=== PATIENT | female | born 1985 | race Caucasian/White ===

== ENCOUNTER 2023-08-31 09:31 | Inpatient (IN) | payer MEDICAID, SELFPAY ==
[2023-08-31 09:43] VITALS: BP 109/56; PULSE 87; RESP 16; TEMP 36.4; O2SAT 100
--- NOTE | 2023-08-31 10:15 | DI.RAD_ITS ---
Exam(s) XR ANKLE RT COMPLETE XR FOOT RT COMPLETE EXAM: XR FOOT RT COMPLETE and XR ankle RT complete CLINICAL HISTORY: IVDU, ?osteo. TECHNIQUE: 2D digital imaging was performed of the right ankle and foot. Six images were obtained. AP, oblique and lateral views were obtained. COMPARISON: No priors for comparison. FINDINGS: BONES: No acute fracture is present. No bony destructive lesion is seen. JOINTS: No dislocation present. The joint spaces are well maintained. SOFT TISSUE: Normal. No subcutaneous air or foreign body is identified. IMPRESSION: Unremarkable radiographs of the right ankle and foot. No radiographic findings to suggest osteomyeli tis. DATA REPOSITORY: RADIATION DOSE DELIVERED:
--- NOTE | 2023-08-31 10:25 | ED.GENADUL_ITS ---
HPI General Date/Time Provider Initiated Documentation: 08/31/23 09:46 . HPI Narrative: 38 year-old female presents to ED today by POV/ambulating with a chief complaint of R foot/ankle pain, feels she may have a bone infection, history of IVDU with onset noted yesterday, started as back pain paraspinal to lumbar region, but that may have been just from sleeping wrong. Quality described as exquisite pain with light touch to foot/ankle of R leg, has a healing abscess to R mid-calf, no radiation to fever, numbness/tingling, groin numbness, leg weakness, inability to ambulate. Severity is described as 6-7/10. Palliating factors include nothing specific. Provoking factors include nothing specific. Events leading up to the incident/Associated Symptoms: Patient is still actively using IVDU, states she has been having trouble getting started with [facility]. Patient not anticoagulated. Related Data Home Medications Medication Instructions Recorded Confirmed buprenorphine HCl 8 mg sublingual 8 mg sublingual BID 08/31/23 08/31/23 tablet Allergies Allergy/AdvReac Type Severity Reaction Status Date / Time No Known Allergies Allergy Verified 08/31/23 13:47 General Stated Complaint: Cellulitis ALDEN: 3 Review of Systems All systems reviewed & are unremarkable except as noted in HPI and below Exam Narrative Exam Narrative: GENERAL APPEARANCE: Well-nourished, non-toxic, awake and alert, atraumatic, no acute distress. SKIN: Warm, pink, dry, intact, without rashes/lesions/ulcerations. HEAD: Normocephalic, atraumatic, normal hair distribution for gender/age. EYES: Pupils PERRLA, EOMs intact without nystagmus, normal conjunctiva, no exudates on lids/lashes. ENT: Nares patent, no circumoral cyanosis, no facial swelling NECK: Supple, trachea midline, painless cervical ROM. LUNGS/CHEST: Non-labored respirations, normal A/P diameter, symmetrical expansion, no chest wall deformity HEART (CV/PV): Regular rate, R dorsalis pedis pulse 2+, no peripheral edema, no JVD. ABDOMEN: Soft, non-distended, no guarding. MSK: Normal ROM, no swelling/deformity to bilateral UEs or LEs, moving all extremities without weakness, no cyanosis, spine midline without tenderness, normal curvature. R LE: Well-healed ulceration at the right mid calf with no signs of active fluctuance under the skin, multiple old sites of IVDU with exquisite tenderness to the foot and ankle over bony prominences, sensation intact, no overt redness or warmth to touch NEURO: Mental Status AAOx4 - alert to person, place, time, events No facial droop, no forehead involvement. Motor: No focal weakness - strength 5/5 in bilateral UEs and LEs, proximal and distal, symmetric. Sensory: sensation intact to light touch globally. Gait normal: patient ambulated without ataxia into ED room. PSYCH: euthymic, cooperative, pleasant, appropriate speech Course Vital Signs Vital signs: Vital Signs Temperature 36.4 C L 08/31/23 09:43 Pulse 87 08/31/23 09:43 Respiratory Rate 16 08/31/23 09:43 Blood Pressure 109/56 L 08/31/23 09:43 Pulse Oximetry 100 08/31/23 09:43 Temperature 36.4 C L 08/31/23 09:43 Temperature Source Temporal Artery Scan 08/31/23 09:43 Pulse 87 08/31/23 09:43 Respiratory Rate 16 08/31/23 09:43 Blood Pressure 109/56 L 08/31/23 09:43 Blood Pressure Position Sitting 08/31/23 09:43 Pulse Oximetry 100 08/31/23 09:43 Oxygen Delivery Method Room Air 08/31/23 09:43 Oxygen Flow Rate 0 08/31/23 09:43 Medical Decision Making This dictation utilizes [id number] dictation software and may contain unedited grammatical errors. 38 y/o F presents to ED today with a chief complaint of R foot/leg pain, history of IVDU, has a healing ulceration to R mid-calf from IVDU, feels she may have a bone infection. Patient denies overt fevers, endorses significant pain with any weight-bearing, states she has back pain as well but it is paraspinal and likely due to how she slept on it. Patients' medical history: Polysubstance abuse. Family and social history: History of IV drug use. Pertinent exam findings / vital signs include R LE: Well-healed ulceration at the right mid calf with no signs of active fluctuance under the skin, multiple old sites of IVDU with exquisite tenderness to the foot and ankle over bony prominences, sensation intact, no overt redness or warmth to touch, pain with passive ROM. Differential / pathologies of concern include osteomyelitis, cellulitis. Diagnostic studies of: -CBC, CMP, CRP/ESR, Lactate, XR R Foot & Ankle, MR Lower Ext w/wo. -CRP/ESR elevated -CBC no leukocytosis -Lactate wnl -XR shows no signs of osteomyelitis Interventions of: -none, await ortho consult. -Patients IV blew and MRI contrast study was not accomplished ED Course/Assessment/Plan: 38-year-old female who is an active IV drug user is complaining of right ankle pain without overlying cellulitis, there is no overt pain with passive range of motion there is pain with light touch, I did perform x-rays which show no acute abnormalities, she does have elevated inflammatory markers with concern for possible osteomyelitis I did perform MRI which was signed out to oncoming providers Ailyn Noel PA-C with MRI read pending and possible Ortho consult. Disposition of Right Ankle Pain. Patient verbalized understanding of the plan and return to ED criteria and engaged in shared decision making. Medical Records Medical records reviewed: Yes I reviewed the patient's medical records. Imaging Data Radiologic Study: Attestation: I personally reviewed and interpreted this imaging study as follows: Imaging: X-Ray Radiologist's impression: EXAM: XR FOOT RT COMPLETE and XR ankle RT complete CLINICAL HISTORY: IVDU, ?osteo. TECHNIQUE: 2D digital imaging was performed of the right ankle and foot. Six images were obtained. AP, oblique and lateral views were obtained. COMPARISON: No priors for comparison. FINDINGS: BONES: No acute fracture is present. No bony destructive lesion is seen. JOINTS: No dislocation present. The joint spaces are well maintained. SOFT TISSUE: Normal. No subcutaneous air or foreign body is identified. IMPRESSION: Unremarkable radiographs of the right ankle and foot. No radiographic findings to suggest osteomyelitis. Radiologic Study #2: Imaging: MRI Lab Data Lab results reviewed: Yes I reviewed the patient's lab results. Labs: Laboratory Tests Range/Units 08/31/23 12:08 WBC (4.4-10.8) 10^3/uL 8.83 RBC (3.93-5.22) 10^6/uL 3.19 L Hgb (11.2-15.7) g/dL 9.7 L Hct (36.0-46.0) % 29.6 L MCV (80-95) fL 93 MCH (27.0-33.0) pg 30.4 MCHC (32.0-36.0) % 32.8 RDW (11.7-14.6) % 12.8 Plt Count (130-400) 10^3/uL 249 MPV (8.0-11.0) fL 10.3 Immature Gran % 0.5 Neutrophils % 72.8 Lymphocytes % 15.2 Monocytes % 11.1 Eosinophils % 0.1 Basophils % 0.3 Nucleated RBC % (0.0-0.3) % 0.0 Absolute Neutrophils (1.2-6.7) 10^3/uL 6.43 Absolute Lymphocytes (1.2-3.4) 10^3/uL 1.34 Absolute Monocytes (0.1-0.8) 10^3/uL 0.98 H Absolute Eosinophils (0.0-0.7) 10^3/uL 0.01 Absolute Basophils (0.0-0.2) 10^3/uL 0.03 ESR (0-20) mm/hr 45 H VBG Lactate (0.6-1.4) mmol/L 1.1 Sodium (136-145) mmol/L 136 Potassium (3.5-5.1) mmol/L 4.1 Chloride (98-107) mmol/L 100 Carbon Dioxide (21.0-32.0) mmol/L 27.7 Anion Gap (3-11) mmol/L 8.3 BUN (7-18) mg/dL 8 Creatinine (0.55-1.02) mg/dL 1.0 Est GFR (CKD-EPI 2020) (mL/min/1.73m2) 73.95 Glucose (74-106) mg/dL 97 Calcium (8.5-10.1) mg/dL 8.9 Total Bilirubin (0.2-1.0) mg/dL 0.3 AST (15-37) U/L 18 ALT (14-59) U/L 14 Alkaline Phosphatase (46-116) U/L 79 C-Reactive Protein (0.0-0.3) mg/dL 9.84 H Total Protein (6.4-8.2) g/dL 8.0 Albumin (3.4-5.0) g/dL 2.9 L Quality:SDOH Health Related Social Needs: No Data to Display PFSH All Active Problems (Updated 08/31/23 @ 15:57 by MELINDA Andrade) Right ankle pain (Acute) Social History Smoking risk assessment performed?: No Substance use type: crack/cocaine and other Details: Fentanyl Do you feel safe at home: Yes Do you feel safe in your relationship?: Yes Discharge Plan Disposition Patient Disposition: Home Condition: Stable Discharge Details Clinical Impression: Right ankle pain Primary Care Provider: None,None ED Provider: Michel Miller Home Meds and New Rx's Prescriptions: No Action buprenorphine HCl 8 mg tablet, sublingual 8 mg SUBLINGUAL BID Patient Comments: place 1 tablet by sublingual route 2 times every day allow to dissolve slowly in mouth without chewing or swallowing
[2023-08-31 12:12] VITALS: BP 109/56; PULSE 87; RESP 16; TEMP 36.4; O2SAT 100
[2023-08-31 12:16] LABS: Lactate 1.1 mmol/L (0.6-1.4)
[2023-08-31 12:24] LABS: Abs Immature Grans 0.04 10^3/uL (0.0-0.06); Absolute Basophil Count 0.03 10^3/uL (0.0-0.2); Absolute Eosinophil Count 0.01 10^3/uL (0.0-0.7); Absolute Lymphocyte Count 1.34 10^3/uL (1.2-3.4); Absolute Monocyte Count 0.98 10^3/uL (0.1-0.8); Absolute Neutrophil Count 6.43 10^3/uL (1.2-6.7); Basophils % 0.3; Eosinophils % 0.1; HCT 29.6 % (36.0-46.0); HGB 9.7 g/dL (11.2-15.7); Immature Grans % 0.5; Lymphocytes % 15.2; MCH 30.4 pg (27.0-33.0); MCHC 32.8 % (32.0-36.0); MCV 93 fL (80-95); MPV 10.3 fL (8.0-11.0); Monocytes % 11.1; Neutrophils % 72.8; Platelet Count 249 10^3/uL (130-400); RBC 3.19 10^6/uL (3.93-5.22); RDW 12.8 % (11.7-14.6); RDW-SD 43.1 fL; WBC 8.83 10^3/uL (4.4-10.8)
[2023-08-31 12:34] LABS: ALT 14 U/L (14-59); AST 18 U/L (15-37); Albumin 2.9 g/dL (3.4-5.0); Alkaline Phosphatase 79 U/L (46-116); Anion Gap 8.3 mmol/L (3-11); BUN 8 mg/dL (7-18); Bilirubin, Total 0.3 mg/dL (0.2-1.0); C-Reactive Protein 9.84 mg/dL (0.0-0.3); CO2 27.7 mmol/L (21.0-32.0); Calcium 8.9 mg/dL (8.5-10.1); Chloride 100 mmol/L (98-107); Estimated GFR 73.95 (mL/min/1.73m2); Glucose 97 mg/dL (74-106); Potassium 4.1 mmol/L (3.5-5.1); Sodium 136 mmol/L (136-145)
[2023-08-31] MEDS: Ketorolac 10 MG TAB PO (12:49)
[2023-08-31] MEDS: Acetaminophen 500 MG TAB 1000 MG PO ×2 (12:49→21:50)
--- NOTE | 2023-08-31 12:56 | DI.MRI_ITS ---
Exam(s) MR LOWER JOINT RT WO/W EXAM: MR LOWER JOINT RT WO/W CLINICAL HISTORY: R foot/ankle; ?osteomyelitis TECHNIQUE: Multiplanar multisequence MRI was performed with both pre and post contrast infused seque nces. IV contrast = Dotarem 12 mL IV COMPARISON: CR XR ANKLE RT COMPLETE from 08/31/2023 FINDINGS: SKIN: No evidence of ulcer nor subcutaneous tract. BONES/JOINTS: No evidence of fracture nor bone contusion. No osseous erosions. There is a moderate size ankle tibiotalar joint effusion. Mild synovial thickening. There is no effusion of the subtala r joint. The talar dome appears unremarkable. There is no evidence of para-articular ganglion.The re is no evidence of osseous tarsal coalition. LIGAMENTS: The anterior and posterior tibiofibular and calcaneofibular ligaments are intact. The ante rior and posterior talofibular ligaments are intact. The deltoid ligament is intact. SINUS TARSI: There is no loss of the normal fat signal in this space. Interosseous ligament is intac t. There is no evidence of sinus tarsi ganglion cyst. ANTEROLATERAL GUTTER:There is no abnormal signal/abnormal tissue in this space. MUSCULOTENDINOUS STRUCTURES: Achilles tendon: Unremarkable. No evidence of tear nor tendinitis/tendinosis. Plantar fascia: Unremarkable. No evidence of tear, abnormal thickening, nor abnormal nodularity. Anterior Extensor tendons: Unremarkable. Medial Tendons: Posterior Tibialis: Unremarkable. No tear or tenosynovitis evident. Flexor Digitorum longus: Unremarkable. No tear or tenosynovitis evident. Flexor Hallicus longus: Unremarkable. No tear or tenosynovitis evident. Lateral Tendons: Peroneus longus: Unremarkable. No tear nor tenosynovitis evident. Peroneus brevis:Unremarkable. No tear nor tenosynovitis evident. SOFT TISSUES: No abnormal intramuscular signal. OTHER FINDINGS: None. IMPRESSION: 1. Main finding here is a moderate-sized tibiotalar joint effusion. Given the clinical history here 1 might consider fluid sampling to rule out infection/septic arthritis. 2. No evidence of osteomyelitis. 3. No tendon tears nor tenosynovitis. DATA REPOSITORY:
[2023-08-31 12:57] LABS: ESR 45 mm/hr (0-20)
[2023-08-31] MEDS: Normal Saline Flush 10 ML SYR IVP ×2 (15:15→21:51)
[2023-08-31] MEDS: Gadoterate meglumine 20 ML SYRINGE 12 ML IVP (15:16)
[2023-08-31] MEDS: fentaNYL 100 MCG/2 ML VIAL IVP (17:41)
[2023-08-31 17:45] LABS: Lactate 0.9 mmol/L (0.6-1.4)
[2023-08-31 17:51] LABS: Clarity Cloudy; Mononuclear Cells 5 %; Polynuclear Cells 95 %
--- NOTE | 2023-08-31 17:53 | DI.VRAD_ITS ---
PROCEDURE INFORMATION: Exam: MR Right Lower Extremity Joint Without and With Contrast; Ankle Exam date and time: 08/31/2023 2:59 PM Age: 38 years old Clinical indication: Pain; Right; Patient HX: R foot/ankle; ? Osteomyelitis TECHNIQUE: Imaging protocol: Magnetic resonance imaging of the right lower extremity without and with contrast. Exam focused on the ankle. Contrast material: DOTAREM; Contrast volume: 12 ml; Contrast route: INTRAVENOUS (IV); COMPARISON: No relevant prior studies available. FINDINGS: Bones/joints: The bones are intact. Bone marrow signal is not pathologically infiltrated. Ankle joint effusion is present and associated with diffuse symmetric synovial thickening and enhancement. There is no significant inflammatory change in the adjacent soft tissues. LIGAMENTS: Distal tibiofibular syndesmosis: Unremarkable. No tear. Anterior talofibular ligament: Unremarkable. No tear. Posterior talofibular ligament: Unremarkable. No tear. Calcaneofibular ligament: Unremarkable. No tear. Deltoid ligament complex: Unremarkable. No tear. TENDONS: Flexor tendons of foot: Unremarkable as visualized. Tibialis posterior tendon: Unremarkable as visualized. Peroneal tendons: Unremarkable as visualized. Extensor tendons of foot: Unremarkable as visualized. Tibialis anterior tendon: Unremarkable as visualized. Achilles tendon: Unremarkable as visualized. Tarsal canal (Sinus tarsi): Unremarkable. Normal signal of the fat. Tarsal tunnel: Unremarkable. Soft tissues: Unremarkable. Plantar fascia: Plantar fascia is unremarkable. IMPRESSION: 1. Normal bones. Negative for evidence of osteomyelitis. 2. Ankle joint effusion and nonspecific acute synovitis. Consider fluid sampling if there is a desire to evaluate for a specific pathology. Dictated and Authenticated by: Rashad Bowens MD. Ordering:YOAV Pearson MD
[2023-08-31 18:27] VITALS: BP 108/78; PULSE 85; RESP 18; TEMP 36.7; O2SAT 100
[2023-08-31] MEDS: VANCOMYCIN 1,500 MG in Normal Saline 250 ML 166.6666 MG IVPB (18:39)
--- NOTE | 2023-08-31 18:56 | W.ORTHOCONSU ---
Date of service: 08/31/23 Time of Service: 16:25 History of Present Illness History of Present Illness Chief Complaint: Right Ankle Pain Narrative: Melissa is a 38-year-old female who presents today with exquisite right ankle and foot pain. She reports has been present for the last day. She had difficulty ambulating today which made her present to the emergency department. She is an active IV drug user, using fentanyl regularly. She has a wound to the medial aspect of the right calf which she reports is actually doing much better. She has not sought any professional treatment. She does state that she is trying to get started into the [facility] and does report taking Suboxone but still does continue to use fentanyl daily. She has a history of injecting within her leg and foot and over the medial aspect of the ankle. She otherwise reports some chills but no fevers. She has had no redness or other wounds except for that mentioned about the medial aspect of the right calf. No other significant medical history. She denies current chest pain or shortness of breath. She feels the pain is diffusely about the lower leg, ankle and foot. She does feel that it is swollen. She has been unable to bear weight. She has pain with any motion of the right ankle. Consults Consult date: 08/31/23 Requesting physician: Ailyn Noel Consult Reason Right ankle pain with effusion Assessment and Plan Assessment and plan (1) Ulcer of right lower extremity with fat layer exposed: Status: Acute (2) IVDU (intravenous drug user): Status: Acute (3) Right ankle pain: Status: Acute Assessment and plan: MRI and clinical examination is concerning for septic arthritis about the right ankle. Less likely to be Lyme and gout. Cell count is nearly 50,000 cells with a preponderance of polymorphonuclear cells which once again would be concerning for infection, particular given the history. She has an elevated CRP. No other significant findings externally except for multiple sites of injections excoriations, and a healing full-thickness ulceration about the medial?proximal calf. This test the presumed to be a septic arthritis about the right ankle. We will go ahead and start antibiotics. Draw blood cultures. Admitted to hospital for IV antibiotics. I appreciate medicine consult to help with her ongoing subs abuse disorder and making sure we appropriately treat her ongoing symptoms and the potential for detoxification. She seeks no other medical care routinely and therefore thing is important that the medicine team weighs then on her overall health and makes recommendations for current management anticipation of the operating room tomorrow. N.p.o. after midnight. Will going start vancomycin and Zosyn for broad-spectrum coverage. Review of Systems All systems reviewed & are unremarkable except as noted in HPI and below PFSH All Active Problems (Updated 08/31/23 @ 21:45 by Paul Pacheco MD) Septic arthritis of right ankle (Acute) Ulcer of right lower extremity with fat layer exposed (Acute) IVDU (intravenous drug user) (Acute) Right ankle pain (Acute) Social History Smoking risk assessment performed?: No Substance use type: crack/cocaine and other Details: Fentanyl Housing: house Do you feel safe at home: Yes Do you feel safe in your relationship?: Yes Exam Const General: cooperative, uncomfortable, disheveled and ill appearing Extrem Other: Evaluation of the right lower extremity shows multiple scabs and areas of excoriation from previous injection site. There is an area approximately 1-1/2 cm in diameter about the medial?proximal leg overlying the medial aspect of the calf musculature that has complete skin loss with exposed fat. The tissue does not appear necrotic but also does not appear very healthy. There is no surrounding erythema. There is some induration but no expressible fluid. There is some generalized swelling seen in the distal leg but a notable effusion is palpable about the right ankle. There is pain with any attempted passive range of motion of the right ankle. She is resistant to demonstrate any active range of motion of the right ankle. She is able to demonstrate some active toe extension and flexion. Sensation is grossly intact to light touch about the deep and superficial peroneal nerve and tibial nerve. Weakly palpable DP pulse. Results Last Vital Signs Temp 36.7 C 08/31/23 18: Pulse 85 08/31/23 18:27 Resp 18 08/31/23 18:27 BP 108/78 08/31/23 18:27 Pulse Ox 100 08/31/23 18:27 Labs 08/31/23 12:08 08/31/23 12:08 Labs: Laboratory Results - last 24 hr 08/31/23 08/31/23 08/31/23 12:08 16:49 17:34 WBC 8.83 RBC 3.19 L Hgb 9.7 L Hct 29.6 L MCV 93 MCH 30.4 MCHC 32.8 RDW 12.8 Plt Count 249 MPV 10.3 Immature Gran % 0.5 Neutrophils % 72.8 Lymphocytes % 15.2 Monocytes % 11.1 Eosinophils % 0.1 Basophils % 0.3 Nucleated RBC % 0.0 Absolute Neutrophils 6.43 Absolute Lymphocytes 1.34 Absolute Monocytes 0.98 H Absolute Eosinophils 0.01 Absolute Basophils 0.03 ESR 45 H VBG Lactate 1.1 0.9 Sodium 136 Potassium 4.1 Chloride 100 Carbon Dioxide 27.7 Anion Gap 8.3 BUN 8 Creatinine 1.0 Est GFR (CKD-EPI 2020) 73.95 Glucose 97 Calcium 8.9 Total Bilirubin 0.3 AST 18 ALT 14 Alkaline Phosphatase 79 C-Reactive Protein 9.84 H Total Protein 8.0 Albumin 2.9 L Fluid Source R Ankle Fluid Color Yellow Fluid Clarity Cloudy Fluid WBC 20832 Fld Polynuclear WBCs % 95 Fluid Mononuclear Cell 5 Imaging Imaging Studies: X-ray of the right ankle does not show any signs of osteomyelitis. Soft tissue swelling is seen. No other suspicious lesions. MRI of the right ankle demonstrates a large effusion about the right ankle. There is some synovitis in the area. There is no sign of bone marrow edema or reactive bone changes. No signs of osteomyelitis. No tenosynovitis. Procedures Joint Aspiration/Injection Joint Asp./Inject. 1: Time out performed: Yes Side of body: right Joint aspirated: ankle Ultrasound guidance: No Skin prep: Chlorhexidine Local anesthesia used: other (ethyl chloride spray) Needle size used: 22G Fluid obtained: turbid Patient tolerated procedure: well Additional comments: Fluid sample was sent to the lab for cell count and culture.
[2023-08-31 19:29] LABS: Source Nasal/Nares
--- NOTE | 2023-08-31 19:37 | W.EDPROG ---
Date of service: 08/31/23 Time of Service: 19:40 Medical Decision Making Case is excepted from PATRICK pending MRI Patient was assessed, she is unable to move her ankle, and concern for septic arthritis, I consulted with Dr. Pacheco, Ortho and he performed ankle arthrocentesis, cloudy fluid was obtained, greater than 95 white blood cells, will treat with vancomycin for presumed septic arthritis, pending washout in the morning Patient agreeable to admission Dr. Pacheco to admit Quality:SDOH Health Related Social Needs: No Data to Display Sign Out Sign Out Data: Sign Out Comment: Await contrast study for MRI Foot/Ankle, Consult ortho osteomyelitis vs septic arthritis- no redness/warmth/swelling over R ankle but does have some mild pain with passive ROM. Elevated inflammatory markers Last updated by Michel Miller PA at 08/31/23 15:58 Discharge Plan Disposition Patient Disposition: Home Condition: Stable Discharge Details Clinical Impression: Right ankle pain Primary Care Provider: None,None ED Provider: Ailyn Noel Home Meds and New Rx's Prescriptions: No Action buprenorphine HCl 8 mg tablet, sublingual 8 mg SUBLINGUAL BID Patient Comments: place 1 tablet by sublingual route 2 times every day allow to dissolve slowly in mouth without chewing or swallowing
[2023-08-31 20:06] VITALS: BP 123/79; PULSE 77; RESP 16; TEMP 37; O2SAT 100
[2023-08-31 20:10] VITALS: BP 123/66; PULSE 80; RESP 18; O2SAT 97
[2023-08-31 20:10] LABS: COVID-19 PCR Negative (Negative)
[2023-08-31 21:39] LABS: Lab Add On Test DONE
[2023-08-31] MEDS: Ketorolac 15 MG/ML VIAL IVP (21:50)
[2023-08-31 22:13] LABS: Vitamin D 25 Total 23.9 ng/mL (30-100)
[2023-08-31 22:38] VITALS: BP 114/68; PULSE 79; RESP 18; TEMP 36.8; O2SAT 98
[2023-08-31] MEDS: PIPERACILLIN/TAZO 3.375 GM in Normal Saline 50 ML IVPB (22:51)
--- NOTE | 2023-08-31 23:05 | MCONE_ITS ---
Date of service: 08/31/23 Time of Service: 19:45 Assessment and Plan Assessment and plan (1) Septic arthritis of right ankle: Assessment and plan: Patient presents with septic arthritis of her right ankle supported by arthrocentesis and MRI findings. Orthopedic surgery consulted and will washout her ankle first thing in the morning. Pain control is challenging in this patient who is recently started on methadone. Will treat with oral morphine to try and even out response (consider long acting once we can assess her need), and watch closely for respiratory depression with a combination of methadone and morphine, especially as pain control generally requires higher doses to achieve efficacy in patients on methadone and with a history of recreational drug use. Hopefully her need will go down following surgery. Patient currently using IV fentanyl at high doses. Patient on IV vancomycin and Zosyn for broad-spectrum coverage until her ankle joint can be flushed the organism and sensitivities identified. Patient will also need assistance establishing PCP care and arranging close outpatient followup, as she doesn't have a PCP currently. (2) Ulcer of right lower extremity with fat layer exposed: Status: Acute Assessment and plan: Ulcer healing well with eschar formed on top. No clinical evidence for surrounding cellulitis, or underlying abscess. (3) IVDU (intravenous drug user): Assessment and plan: Patient recently started on methadone 30 mg this past Thursday (3 days ago) and is now up to 50 mg a day. Will give patient 15 mg p.o. every 8 scheduled. She also is receiving as needed oral morphine for pain control on top of this. (4) Right ankle pain: Status: Acute Assessment and plan: See entry for septic arthritis of the right ankle joint above. Qualifiers: Chronicity: acute Qualified Code(s): M25.571 - Pain in right ankle and joints of right foot (5) Anemia: Status: Chronic Assessment and plan: Normochromic, normocytic. Unclear etiology. Continue to monitor. Qualifiers: Anemia type: unspecified type Qualified Code(s): D64.9 - Anemia, unspecified History of Present Illness Narrative: 38-year-old white female injection drug user who injects her right lower extremity presents with chief complaint of right ankle pain. Patient complains of 1 day of right ankle pain that is exquisite, even to light touch, and limiting her ambulation. Her biggest concern is for a bone infection. Her pain started yesterday evening. She also reports back pain in her lumbar paraspinal region, which she attributes to sleeping on it wrong. She denies any radiation with her ankle pain. Patient reports pain with any active or passive movement of her right ankle to the point where she does not want to move it at all and does not want it moved. She reports injecting fentanyl into her legs bilaterally including her feet and over the medial aspect of her right ankle. Reports associated discoloration (purple/redness) and warmth and swelling in her right ankle. In addition, she has a healing and improving abscess on her right mid calf. She has not taken any medication to try and help her pain. Patient has been trying to get into the [facility] program and recently started on 30 mg of methadone 3 days ago to help transition from intravenous drug use 3 days ago, and has now increased to 50 mg, but states she is still actively using intravenous fentanyl even with being on the methadone because the methadone dose isn't high enough yet. Patient is not on anticoagulation. Pt reports assocaited fever (unmeasured) and chills. In our emergency room, out of concern for septic arthritis, orthopedics was consulted (Dr. Pacheco) who performed an ankle arthrocentesis. Fluid returned was cloudy and had greater than 95% white blood cells. Patient was started on vancomycin and Zosyn for presumed septic arthritis and will be taken for washout surgery in the morning. Eleavted ESR/CRP at 45/9.8 respectively. Normal WBC and lactate. XR negative for osteomyelitis findings (+ for soft tissue swelling). MRI negative for osteo (no bone marrow edema or reative bone changes) but positive for findings c/w septic arthritis (large effusion about the right ankle, synovitis), less likely Lyme or gout; no tenosynovitis. Cell count is nearly 50,000 cells with a preponderance of polymorphonuclear cells with >95% wbcs. Blood cultures drawn. Review of Systems Narrative: Review of Systems See also HPI above. Const: Positive for fever, chills. HENT: Positive for acute hearing changes- feels as though her hearing has been decreasing recently (for a while). Eyes: Negative for acute visual disturbance. Resp: Negative for shortness of breath. CV: Negative for chest pain. Abd: Negative for abdominal pain. GI: Negative for bowel changes. : Negative for changes in urination. MSK: Negative for focal weakness. Skin: Negative for rash. Neuro: Negative for numbness. Heme: Positive for right leg/ankle edema. PFSH All Active Problems (Updated 09/01/23 @ 05:43 by Jose Tinoco MD) Anemia (Chronic) Ulcer of right lower extremity with fat layer exposed (Acute) Right ankle pain (Acute) Medical History (Updated 09/01/23 @ 05:43 by Jose Tinoco MD) IVDU (intravenous drug user) Surgical History (Updated 09/01/23 @ 05:36 by Jose Tinoco MD) Cervical vertebral fusion Septic arthritis of right ankle Social History Smoking risk assessment performed?: No Substance use type: crack/cocaine and other Details: Fentanyl Housing: house Do you feel safe at home: Yes Do you feel safe in your relationship?: Yes Exam Narrative Exam Narrative: Constitutional: NAD. Head/Face: NCAT. Eyes: PERRL. Nl appearing eyes. ENT: Nl appearing external ears, nose, and oropharynx. No exudates. Uvula mid- line. Neck: Supple, non-tender to palpation. No obvious mass. Slightly dry mucous membranes. Chest: Chest wall non-tender to palpation. Resp: CTAB. Equal BS. No wheezes, rhonchi, crackles, rales. CV: RRR. No rubs, or gallops. Abd/GI: Soft, NTTP. No rebound, guarding, rigidity. No organomegaly or masses palpated. Back/: No spinal tenderness. No CVA tenderness. Skin: Warm & dry. No clinically significant rash noted on exposed skin, patient has multiple injection site wounds throughout her lower extremities bilaterally. She also has a quarter sized healing ulcer on her right mid posterior medial calf with eschar and exudate. MSK/Ext: APPIAH. 5/5 motor in all ext bilaterally (except unable to test right ankle d/t pain). Heme/Lymph: Right ankle edema. Neuro: A&O. Nl speech. Sensory & Motor grossly intact. Capacity intact. Decreased judgment. Psych: Appropriate mood, manner, and affect. SIRS Screen: Negative SIRS Criteria (at least 2 of the following): Temp (+ mode) (?101 (38.3), ?96.8 (36))- Negative Pulse (?90/min)- Negative (or) Resp (?20/min)- Negative (or) WBC (?12K, ?4K) or Bandemia (?10%)- Negative Source of Infection?: Yes- right ankle joint. Antibiotics Indicated?: Yes- empiric vancomycin & zosyn. Results Last Vital Signs Temp 36.8 C 08/31/23 22:38 Pulse 79 08/31/23 22:38 Resp 18 08/31/23 22:38 BP 114/68 08/31/23 22:38 Pulse Ox 98 08/31/23 22:38 Labs 08/31/23 12:08 08/31/23 12:08 Labs: Laboratory Results - last 24 hr 08/31/23 08/31/23 08/31/23 12:08 16:49 17:34 WBC 8.83 RBC 3.19 L Hgb 9.7 L Hct 29.6 L MCV 93 MCH 30.4 MCHC 32.8 RDW 12.8 Plt Count 249 MPV 10.3 Immature Gran % 0.5 Neutrophils % 72.8 Lymphocytes % 15.2 Monocytes % 11.1 Eosinophils % 0.1 Basophils % 0.3 Nucleated RBC % 0.0 Absolute Neutrophils 6.43 Absolute Lymphocytes 1.34 Absolute Monocytes 0.98 H Absolute Eosinophils 0.01 Absolute Basophils 0.03 ESR 45 H VBG Lactate 1.1 0.9 Sodium 136 Potassium 4.1 Chloride 100 Carbon Dioxide 27.7 Anion Gap 8.3 BUN 8 Creatinine 1.0 Est GFR (CKD-EPI 2020) 73.95 Glucose 97 Calcium 8.9 Total Bilirubin 0.3 AST 18 ALT 14 Alkaline Phosphatase 79 C-Reactive Protein 9.84 H Total Protein 8.0 Albumin 2.9 L 25-OH Vitamin D Total 23.9 L Fluid Source R Ankle Fluid Color Yellow Fluid Clarity Cloudy Fluid WBC 93527 Fld Polynuclear WBCs % 95 Fluid Mononuclear Cell 5 COVID-19 Source SARS-CoV-2 (PCR) Add-On Test Request DONE 08/31/23 19:26 WBC RBC Hgb Hct MCV MCH MCHC RDW Plt Count MPV Immature Gran % Neutrophils % Lymphocytes % Monocytes % Eosinophils % Basophils % Nucleated RBC % Absolute Neutrophils Absolute Lymphocytes Absolute Monocytes Absolute Eosinophils Absolute Basophils ESR VBG Lactate Sodium Potassium Chloride Carbon Dioxide Anion Gap BUN Creatinine Est GFR (CKD-EPI 2020) Glucose Calcium Total Bilirubin AST ALT Alkaline Phosphatase C-Reactive Protein Total Protein Albumin 25-OH Vitamin D Total Fluid Source Fluid Color Fluid Clarity Fluid WBC Fld Polynuclear WBCs % Fluid Mononuclear Cell COVID-19 Source Nasal/Nares SARS-CoV-2 (PCR) Negative Add-On Test Request Imaging Additional studies: Ankle XR- Ankle MRI- Procedures Joint Aspiration/Injection Joint Asp./Inject. 1: Additional comments: See orthopedic documentation for right ankle arthrocentesis.
[2023-09-01] VITALS (9 sets, daily range): BP systolic 107–124; BP diastolic 69–89; PULSE 58–85; RESP 16–18; TEMP 35.9–36.8; TEMPC 35.9; O2SAT 99–100; BMI 23.8
[2023-09-01] MEDS: Normal Saline 1,000 ML 80 ML IV ×2 (00:20→14:08)
[2023-09-01] MEDS: Acetaminophen 500 MG TAB 1000 MG PO ×4 (04:04→22:53)
[2023-09-01] MEDS: Ketorolac 15 MG/ML VIAL IVP ×4 (04:05→22:54)
[2023-09-01] MEDS: PIPERACILLIN/TAZO 3.375 GM in Normal Saline 50 ML IVPB ×4 (04:05→23:48)
[2023-09-01] MEDS: Ondansetron 4 MG/2 ML VIAL IVP (04:49)
[2023-09-01 05:43] LABS: Vancomycin, Random 10.8 ug/mL
[2023-09-01] MEDS: Methadone 10 MG TAB 15 MG PO ×3 (07:02→22:53)
[2023-09-01] MEDS: VANCOMYCIN/WATER (PEG) 750 MG/150 ML BAG 150 MG IV ×2 (08:25→19:40)
--- NOTE | 2023-09-01 08:25 | ANES.PREOP_ITS ---
General Info Date of Service Date Performed: 09/01/23 Height: 5 ft 2 in Weight: 58.967 kg Body Mass Index (BMI): 23.8 Surgical Procedure: Operation Date: 09/01/23 16:55 Proposed Procedure Side Surgeon p Ankle I&D Right Paul Pacheco MD Meds Allergies and Home Medications Allergies Allergy/AdvReac Type Severity Reaction Status Date / Time No Known Allergies Allergy Verified 08/31/23 13:47 Home Medication Medication Instructions Recorded buprenorphine HCl 8 mg sublingual 8 mg sublingual BID 08/31/23 tablet Current Visit Medications: Current Medications Generic Name Dose Route Start Last Admin Trade Name Freq PRN Reason Stop Dose Admin Acetaminophen 1,000 mg 08/31/23 22:00 09/01/23 04:04 Acetaminophen 500 Mg Tab PO 1,000 mg Q6H JF Administration Sodium Chloride 1,000 mls @ 80 mls/hr 09/01/23 01:00 09/01/23 00:20 Saline 1000ml Bag IV 80 mls/hr INFUSION JF Administration Piperacillin Sod/Tazobactam 50 mls @ 100 mls/hr 09/01/23 04:00 09/01/23 04:40 Sod 3.375 gm/ Sodium Chloride IVPB Infused Q6H JF Infusion Vancomycin/PEG/NADA/Lysine/Water 750 mg in 150 mls @ 150 mls/hr 09/01/23 08:00 09/01/23 08:25 Vancocin Injection IV 150 mls/hr Q12H JF Administration IV Miscellaneous Supplies 1 each 08/31/23 19:15 Iv Access IV DIRECTED JF Ketorolac Tromethamine 15 mg 09/01/23 04:00 09/01/23 04:05 Ketorolac 15 Mg/Ml Vial IVP 09/06/23 03:59 15 mg Q6H JF Administration Methadone HCl 15 mg 09/01/23 06:00 09/01/23 07:02 Methadone 10 Mg Tab PO 15 mg Q8H JF Administration Morphine Sulfate 30 mg 08/31/23 20:35 09/01/23 08:24 Morphine 15 Mg Tab PO 30 mg Q3H PRN PRN Administration Ondansetron HCl 4 mg 09/01/23 04:12 09/01/23 04:49 Ondansetron 4 Mg/2 Ml Vial IVP 4 mg Q4H PRN PRN Administration Sodium Chloride 0 ml 08/31/23 20:35 Normal Saline Flush 10 Ml Syr IVP PRN PRN Sodium Chloride 0 ml 08/31/23 20:35 08/31/23 21:51 Normal Saline Flush 10 Ml Syr IVP 10 ml BID JF Administration Sodium Chloride 0 ml 08/31/23 20:35 Normal Saline 10 Ml Vial IJ DIRECTED PRN PFSH Active Problems Active Problems: Problem Status Onset Code Anemia D64.9 Ulcer of right lower extremity with fat layer exposed L97.912 Right ankle pain M25.571 Medical History Medical History (Updated 09/01/23 @ 05:43 by Jose Tinoco MD) IVDU (intravenous drug user) Surgical History Surgical History (Updated 09/01/23 @ 05:36 by Jose Tinoco MD) Cervical vertebral fusion Septic arthritis of right ankle Tobacco Smoking/Tobacco Use Status: Never Alcohol Alcohol Intake: current Alcohol intake frequency: other Substance Use Substance use type: opiates (Fentanyl) Details: Fentanyl Vital Signs and Lab Results Vital Signs Most Recent Vital Signs in EMR: Most Recent Vital Signs Temp Pulse Resp BP Pulse Ox 36.0 C L 58 L 17 115/71 100 09/01/23 07:53 09/01/23 07:53 09/01/23 07:53 09/01/23 07:53 09/01/23 07:53 Point of Care Results Point of Care Results: POC- Test(urine) Negative 08/31/23 10:56 Lab Results 08/31/23 12:08 08/31/23 12:08 Blood Type / Crossmatch: 2 No Data to Display Complete Blood Count: 2 White Blood Count 8.83 10^3/uL (4.4-10.8) 08/31/23 12:08 Red Blood Count 3.19 10^6/uL (3.93-5.22) L 08/31/23 12:08 Hemoglobin 9.7 g/dL (11.2-15.7) L 08/31/23 12:08 Hematocrit 29.6 % (36.0-46.0) L 08/31/23 12:08 Platelet Count 249 10^3/uL (130-400) 08/31/23 12:08 Venous Blood Lactate 0.9 mmol/L (0.6-1.4) 08/31/23 17:34 Complete Metabolic Panel: 2 Sodium 136 mmol/L (136-145) 08/31/23 12:08 Potassium 4.1 mmol/L (3.5-5.1) 08/31/23 12:08 Chloride 100 mmol/L (98-107) 08/31/23 12:08 Carbon Dioxide 27.7 mmol/L (21.0-32.0) 08/31/23 12:08 BUN 8 mg/dL (7-18) 08/31/23 12:08 Creatinine 1.0 mg/dL (0.55-1.02) 08/31/23 12:08 Est GFR (CKD-EPI 2020) 73.95 (mL/min/1.73m2) 08/31/23 12:08 Calcium 8.9 mg/dL (8.5-10.1) 08/31/23 12:08 Albumin 2.9 g/dL (3.4-5.0) L 08/31/23 12:08 Glucose 97 mg/dL (74-106) 08/31/23 12:08 C-Reactive Protein 9.84 mg/dL (0.0-0.3) H 08/31/23 12:08 Liver Function Panel: 2 Alanine Aminotransferase (ALT/SGPT) 14 U/L (14-59) 08/31/23 12: 08 Aspartate Amino Transf (AST/SGOT) 18 U/L (15-37) 08/31/23 12:08 Coagulation Panel: 2 No Data to Display Cardiac Panel: 2 No Data to Display Arterial Blood Gas: 2 No Data to Display Venous Blood Gas: 2 No Data to Display Pancreas Panel: 2 No Data to Display Thyroid Panel: 2 No Data to Display Infectious Disease: 2 Coronavirus (COVID-19)(PCR) Negative (Negative) 08/31/23 19:26 Coronavirus 2019 Source Nasal/Nares 08/31/23 19:26 Blood Cultures: 2 No Data to Display Toxicology Panel: 2 No Data to Display Panel: 2 No Data to Display Anesthesia Assessment and Plan Anesthesia History Personal History: No History of Anesthesia Complications Family History: No Family History of Anesthesia Complications Exercise Tolerance Exercise Tolerance: Metabolic Equivalents>4 Pertinent Negatives Pertinent Negatives: No Symptoms of GERD, No Major Cardiovascular Symptoms or Complaints and No Major Pulmonary Symptoms or Complaints Cardiac & Pulmonary Exam Cardiac Exam: Normal S1/S2 Heart Sounds Pulmonary Exam: Clear Bilateral Breath Sounds Implantable Cardiac Device Does patient have a Pacemaker or an ICD?: No Airway Exam Known Difficult Airway: No Mallampati Class: 2 Mouth Opening: Normal (> 3cm) Thyromental Distance: Greater than 3 cm Neck Range of Motion: Full ROM Neck Circumference: Normal Teeth Condition: Normal Dentition ASA Classification ASA Score: ASA 2 Emergency Case?: No NPO Status NPO Status: NPO Clears >2 hours, Solids >8 hours Status Status: Negative HCG Anesthesia Plan Resuscitation Status: Full Code Anesthesia Technique: General Anesthesia Airway Planned: Natural Airway Pain Management: Surgeon and patient request nerve block (Discussed with Dr. Pacheco for pain control ) Monitors Used: Standard Monitors and SedLine
[2023-09-01] MEDS: Normal Saline Flush 10 ML SYR IVP ×4 (09:48→19:41)
--- NOTE | 2023-09-01 10:37 | PGE_ITS ---
Date of Service Date of service: 09/01/23 Time of Service: 10:37 Assessment and Plan Assessment and plan (1) Septic arthritis of right ankle: Assessment and plan: Supported by arthrocentesis and MRI findings; no osteomyelitis Orthopedic surgery to washout her ankle today Continue Vanco and Zosyn pending cultures If blood cultures are positive will consider ordering an echocardiogram Pain control: Recreational use IV fentanyl and started on mechanical on Thursday Continue oral morphine:Monitor closely for respiratory distress Continue methadone:was on 30mg daily on Thursday now on 50mg, receiving 15 mg Q8 Dose adjustment after surgery . (2) IVDU (intravenous drug user): Assessment and plan: As above (3) Right ankle pain: Status: Acute Assessment and plan: As above Qualifiers: Chronicity: acute Qualified Code(s): M25.571 - Pain in right ankle and joints of right foot (4) Ulcer of right lower extremity with fat layer exposed: Status: Acute Assessment and plan: Healing ulcer to right calf without evidence of surrounding cellulitis or underlying abscess (5) Anemia: Status: Chronic Assessment and plan: Will continue to monitor might need iron studies, folate and B12 levels Qualifiers: Anemia type: unspecified type Qualified Code(s): D64.9 - Anemia, unspecified (6) On deep vein thrombosis (DVT) prophylaxis: Status: Acute Assessment and plan: As per surgery (7) Discharge planning issues: Status: Acute Assessment and plan: Patient has no PCP in the area, from [facility] Might require assistance to establish PCP for post-admission care; CM to f/u Subjective Subjective Patient reports: no new complaints, still having pain, tolerating liquids well, tolerating a regular diet, voiding w/o difficulty, flatus, bowel movement, nausea, fever and other (chills); denies diarrhea, vomiting or shortness of breath Exam Narrative Exam Narrative: In bed w.op acute distress pain 7/10 o right ankle, no pain to right calf ulcer HENMT: Facial structures with normal appearance Eyes: Well aligned Neuro:alert and oriented to self, person, place, time and situation. No neurological focal deficit Chest:Chest is symmetrical and normal appearance Resp: Normal respiratory pattern, speaks in full sentences,clear lung bilaterally Cardio: regular rhythm, no tachycardia, S1, S2, no murmur, positive pedal pulses Integumentary: indurated, ulcer to right calf, no drainage, healing ulcer to left proximal LE. Extremities: limited ROM to right ankle, swelling and discoloration noted Psych: RASS 0, congruent mood and normal affect. Objective Last Vital Signs Temp 36.0 C L 09/01/23 07:53 Pulse 58 L 09/01/23 07:53 Resp 17 09/01/23 07:53 BP 115/71 09/01/23 07:53 Pulse Ox 100 09/01/23 07:53 Laboratory Results - last 24 hr 08/31/23 08/31/23 08/31/23 12:08 16:49 17:34 WBC 8.83 RBC 3.19 L Hgb 9.7 L Hct 29.6 L MCV 93 MCH 30.4 MCHC 32.8 RDW 12.8 Plt Count 249 MPV 10.3 Immature Gran % 0.5 Neutrophils % 72.8 Lymphocytes % 15.2 Monocytes % 11.1 Eosinophils % 0.1 Basophils % 0.3 Nucleated RBC % 0.0 Absolute Neutrophils 6.43 Absolute Lymphocytes 1.34 Absolute Monocytes 0.98 H Absolute Eosinophils 0.01 Absolute Basophils 0.03 ESR 45 H VBG Lactate 1.1 0.9 Sodium 136 Potassium 4.1 Chloride 100 Carbon Dioxide 27.7 Anion Gap 8.3 BUN 8 Creatinine 1.0 Est GFR (CKD-EPI 2020) 73.95 Glucose 97 Calcium 8.9 Total Bilirubin 0.3 AST 18 ALT 14 Alkaline Phosphatase 79 C-Reactive Protein 9.84 H Total Protein 8.0 Albumin 2.9 L 25-OH Vitamin D Total 23.9 L Fluid Source R Ankle Fluid Color Yellow Fluid Clarity Cloudy Fluid WBC 43601 Fld Polynuclear WBCs % 95 Fluid Mononuclear Cell 5 Random Vancomycin COVID-19 Source SARS-CoV-2 (PCR) Add-On Test Request DONE 08/31/23 09/01/23 19:26 05:00 WBC RBC Hgb Hct MCV MCH MCHC RDW Plt Count MPV Immature Gran % Neutrophils % Lymphocytes % Monocytes % Eosinophils % Basophils % Nucleated RBC % Absolute Neutrophils Absolute Lymphocytes Absolute Monocytes Absolute Eosinophils Absolute Basophils ESR VBG Lactate Sodium Potassium Chloride Carbon Dioxide Anion Gap BUN Creatinine Est GFR (CKD-EPI 2020) Glucose Calcium Total Bilirubin AST ALT Alkaline Phosphatase C-Reactive Protein Total Protein Albumin 25-OH Vitamin D Total Fluid Source Fluid Color Fluid Clarity Fluid WBC Fld Polynuclear WBCs % Fluid Mononuclear Cell Random Vancomycin 10.8 COVID-19 Source Nasal/Nares SARS-CoV-2 (PCR) Negative Add-On Test Request Time Spent with Patient Time Spent with Patient: >50 minutes Time was spent: preparing to see the patient(eg.review tests), obtaining and/or reviewing separately otained hiistory, ordering medications,tests, procedures, referring, communicating with other health critical care clinical nurse specialist, indepentently interpreting results, counseling the patient and care coordination
--- NOTE | 2023-09-01 11:38 | ANES.NERVE_ITS ---
Nerve Block Single Injection Procedure Date and Time Date Performed: 09/01/23 Procedure Start: 11:00 Location Where Procedure Performed Procedure Location: Med/Surg Reason Performed: Acute Pain Management Pain Diagnosis: Ankle Pain (Acute infection, pain) Requesting Provider: Paul Pacheco Timeout Performed Timeout Performed: Yes Monitoring Used ECG and See EMR for corresponding vital signs Sterility Sterility: Hand Hygiene, Surgical Cap, Surgical Mask, Sterile Gloves and Chlorhexidine Sedation Given During Procedure Sedation Given (Indicate Dose Given): No Sedation given Patient Mental Status Patient Mental Status: Awake Nerve Block 1st Nerve Block: Laterality: Right Block Type: Adductor Canal Ultrasound Image Saved?: Yes Needle / Catheter Used: 100mm SonoPlex II Local Anesthetic Bolus (Indicate Dose Given): Lidocaine used for local infiltration of skin, Injected in 3-5ml increments after negative blood aspiration, Bupivacaine 0.5% Dose:: 7mL and Exparel Dose:: 5mL Additives (Indicate Dose Given): None Ultrasound: Sterile probe cover and gel used Nerve Stimulator: Supplement to Ultrasound use and No twitch or parasthesia noted < 0.5 mA Paresthesia: None Procedure Tolerated: No Complications Procedure Outcome: Successful Performed By: Fatou Pratt Other (not listed above): Clement Santana CRNA assist 2nd Nerve Block: Laterality: Right Block Type: Popliteal Sciatic Ultrasound Image Saved?: Yes Needle / Catheter Used: 100mm SonoPlex II Local Anesthetic Bolus (Indicate Dose Given): Lidocaine used for local infiltration of skin, Injected in 3-5ml increments after negative blood aspiration, Bupivacaine 0.5% Dose:: 15mL and Exparel Dose:: 10mL Additives (Indicate Dose Given): None Ultrasound: Sterile probe cover and gel used Nerve Stimulator: Supplement to Ultrasound use and No twitch or parasthesia noted < 0.5 mA Paresthesia: Right Paresthesia Duration: Transient (Stopped needle advance ment, patient had difficulty discerning between pressure and tingling, negative nerve stimulation) Procedure Tolerated: No Complications Procedure Outcome: Successful Performed By: Fatou Pratt Other (not listed above): Marly Santana CRNA assist, report given to Ramya Bee RN after block, tele.
--- NOTE | 2023-09-01 14:01 | PHA.REVIEW2 ---
Pharmacy Admission Review Admission Clinical Review Admission Pharmacy Review: (Updated 09/01/23 @ 11:39 by Henny Quiroz APRN) On deep vein thrombosis (DVT) prophylaxis (Acute) Discharge planning issues (Acute) Ulcer of right lower extremity with fat layer exposed (Acute) Right ankle pain (Acute) No Known Allergies Allergy (Verified 08/31/23 13:47) Resuscitation Status Full Code Height 5 ft 2 in Weight 58.967 kg Pharmacy Admission Review Renal Dosing Renal Dosing: BUN 8 mg/dL (7-18) 08/31/23 12:08 Creatinine 1.0 mg/dL (0.55-1.02) 08/31/23 12:08 Medications needing adjustments: Reviewed (CrCl 71.01 mL/min) Anticoagulation Anticoagulation: Hgb 9.7 g/dL (11.2-15.7) L 08/31/23 12:08 Hct 29.6 % (36.0-46.0) L 08/31/23 12:08 Plt Count 249 10^3/uL (130-400) 08/31/23 12:08 Creatinine 1.0 mg/dL (0.55-1.02) 08/31/23 12:08 DVT Prophylaxis: N/A (None currently due to procedure today) Opiate Usage Evaluate Pain Scale/Pains Meds: Reviewed (Methadone and PRN morphine) Scheduled Bowel Reg ordered if on Opiates?: No Relevant Labs Relevant Labs: ESR 45 mm/hr (0-20) H 08/31/23 12:08 Sodium 136 mmol/L (136-145) 08/31/23 12:08 Potassium 4.1 mmol/L (3.5-5.1) 08/31/23 12:08 Chloride 100 mmol/L (98-107) 08/31/23 12:08 C-Reactive Protein 9.84 mg/dL (0.0-0.3) H 08/31/23 12:08 Electrolytes, C-Reactive P, ESR: Reviewed (No new labs today) Cardiac Review BP, HR, EF%: Reviewed (BP and HR WNL) QTc Review QTc: N/A (No EKG on file) IV to PO Switch IV Medications: Reviewed Home Meds Home Med List reviewed: Reviewed Relevent Home Meds Not ordered & why?: Per H+P just increased to methadone 50mg daily through [facility] Current Meds Current Medication Order Review: Reviewed Comments: Currently giving methadone 15mg q8h due to procedure today and then will switch to outpatient dosing per provider. Pharmacy Antibiotic Review Pharmacy Antibiotic Activity: C/S review and Reviewed, no change Comments: Current regimen of Zosyn and Vancomycin. Vancomycin dosed at 750mg q12h for predicted AUC of 486 and trough of 15.6 mg/L ( test was negative on 08/31/23 - okay to use premix). Blood cultures pending. MRI did not show any osteomyelitis. Went to OR today to wash out ankle.
--- NOTE | 2023-09-01 14:32 | PGE_ITS ---
<Statement entered by Paul Pacheco MD - 09/03/23 08:39> I interviewed and examined the patient with Karely Rudd PA-C. I agree with the documentation as above. The assessment and plan were formulated with my direct involvement. Pual Pacheco MD FAAOS FAAHKS Date of Service Date of service: 09/01/23 Time of Service: 14:54 Assessment and Plan Assessment and plan (1) Ulcer of right lower extremity with fat layer exposed: Status: Acute (2) Septic arthritis of right ankle: Status: Acute (3) IVDU (intravenous drug user): Assessment and plan: Plan: Melissa is a 38-year-old female who was admitted last evening for complaints of severe right ankle pain due to septic arthritis - she is an active IV drug user who uses fentanyl regularly. Based on MRI, clinical examination as well as results from aspiration she was diagnosed with septic right ankle joint and recommended I&D of right ankle that was scheduled for today. Educated patient on surgery covering surgical technique, recovery process, benefits and risks including but not limited to risk of infection, blood clot, damage to soft tissue/blood vessels/nerves in detail. After discussion patient gives verbal understanding of risks and elects to proceed with surgery. Patient had opportunity to have questions answered to their satisfaction. Will continue with vancomycin and zosyn for broad-spectrum coverage until culture results return Will continue with medical consult for assistance with her substance abuse disorder Patient will continue to be scheduled for right ankle I&D with Dr. Pacheco Subjective Subjective Interval history since last seen: Melissa is a 38-year-old female who was admitted last evening for complaints of severe right ankle pain due to septic arthritis. Patient is an active IV drug user. She reports doing okay since being admitted last evening. Denies change in symptoms; denies chest pain or dyspnea. Exam Const General: cooperative and no acute distress Resp Auscultation: clear to auscultation bilaterally, no rales, no rhonchi and no wheezes Cardio Heart Sounds: S1 normal, S2 normal and no murmurs Objective Last Vital Signs Temp 96.8 F L 09/01/23 11:26 Pulse 64 09/01/23 11:26 Resp 18 09/01/23 11:26 BP 107/69 09/01/23 11:26 Pulse Ox 100 09/01/23 11:26 Laboratory Results - last 24 hr 08/31/23 08/31/23 08/31/23 12:08 16:49 17:34 VBG Lactate 0.9 25-OH Vitamin D Total 23.9 L Fluid Source R Ankle Fluid Color Yellow Fluid Clarity Cloudy Fluid WBC 97789 Fld Polynuclear WBCs % 95 Fluid Mononuclear Cell 5 Random Vancomycin COVID-19 Source SARS-CoV-2 (PCR) Path Cons Comment Add-On Test Request DONE 08/31/23 09/01/23 19:26 05:00 VBG Lactate 25-OH Vitamin D Total Fluid Source Fluid Color Fluid Clarity Fluid WBC Fld Polynuclear WBCs % Fluid Mononuclear Cell Random Vancomycin 10.8 COVID-19 Source Nasal/Nares SARS-CoV-2 (PCR) Negative Path Cons Comment Add-On Test Request Time Spent with Patient Time Spent with Patient: <25 minutes Time was spent: obtaining and/or reviewing separately otained hiistory and referring, communicating with other health youth career specialist
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
--- NOTE | 2023-09-01 16:19 | W.ANESVAS ---
Midline Placement Date Performed: 09/01/23 Procedure Time: 16:10 Requesting Provider: Paul Pacheoc Procedure Location: Operating Room Sedation Given (Indicate Dose Given): No Sedation given Patient Mental Status: Performed under MAC anesthesia (Primary nerve block with sedation) Sterility: Hand Hygiene, Surgical Cap, Surgical Mask, Sterile Gloves, Sterile Drape/Sheet and Chlorhexidine Laterality: Left Insertion Site: Brachial Midline Device: PowerGlide Pro 20G Catheter Length: 10 cm Midline Procedure Procedure: 1% Lidocaine to skin and subcutaneous tissue with 25g needle, Vessel accessed with catheter over needle, Guidewire placed with ease, Catheter placed without resistance and Guidewire removed Dressing: Tegaderm Applied and Statlock Applied Blood Return: Present Flushes: Easily Ultrasound: Sterile probe cover and gel used Ultrasound Image Saved?: Yes Number of Attempts (See previous attempts in note section): 1 Procedure Tolerated: No Complications and Patient tolerated well Procedure Outcome: Successful Performed By: Patrick Camargo
--- NOTE | 2023-09-01 16:28 | ROE_ITS ---
Date of service: 09/01/23 Time of Service: 16:00 Operative Note Operative Note DATE OF PROCEDURE: 09/01/23 PRE-OP DIAGNOSIS: Septic Arthriits - Right Ankle PROCEDURE: Open Irrigation of Right Ankle SURGEON: Paul Pacheco [employer]EN BUILDING [employer] DISTRIBUTOR: Tati Funes ANESTHESIA TYPE: General:No Airway and Primary Nerve Block Refer to Anesthesia Record ESTIMATED BLOOD LOSS: 10 Indications: Melissa is a 38-year-old female, active IV drug user, who presented to the emergency department with a swollen right ankle with inability to bear weight. She had significant effusion on clinical exam and on MRI. Aspiration showed 50,000 cells, 95% PMNs. She actively injects in the right leg. Thus given the constellation of symptoms I had a presumptive diagnosis of septic arthritis about the right ankle and recommended operative debridement of the right ankle joint. I discussed the treatment options with her. I reviewed the technical features. I discussed the risk to include bleeding, continued infection, need for repeat procedures, arthritis, damage to nerves or vessels, damage to muscle tendons. Despite these risk, she elected to proceed. Findings: There was gross purulent material within the ankle. There is no significant synovitis appreciable. 2 arthrotomies were created and irrigation was performed across the ankle joint. Procedure Description: Melissa was greeted in the preoperative holding area. Her identity was confirmed the correct site was identified and marked. The consent was reviewed the patient and signed. She was taken back to the operating room placed in supine position with the right leg on a bump. Corail nerve block was performed previously by anesthesia on the floor. She was given an uninstrumented airway sedation. Given poor IV access the midline was placed with ultrasound guidance by anesthesia. The right leg was then prepped with ChloraPrep. It was draped in standard fashion. Timeout was performed for safe surgery. The ankle joint was then aspirated with 8 cc of sanguinous purulent material. This was sent to the lab for crystal and culture. I then created to arthrotomies, 1 anteromedial and anterolateral. This was done by incising the skin only and then the dissection was carried out with a hemostat. Access to the joint was confirmed with joint fluid and purulent material. I then utilized an Angiocath catheter and a large syringe to inject the ankle with an inflow and outflow. This was done for 500 cc of fluid. There is no further purulent material identified. No significant synovitis. A [place] drain was left in the ankle joint exposed outside the skin. The arthrotomy sites were closed with a running 3-0 Monocryl. Steri-Strips were applied followed by gauze, ABD, Kerlix, Bahman wrap. At the end the case all counts were correct. She was transferred back to the medical surgical floor.
[2023-09-01 16:42] LABS: Source Synovial
[2023-09-01 16:43] LABS: Crystals (BF) No Crystals seen
--- NOTE | 2023-09-01 16:46 | W.ANESPOSTOP ---
Postoperative Evaluation Date, Time and Location Date Performed: 09/01/23 Time Performed: 16:41 Patient Location: Med/Surg Vital Signs Most Recent Imported Vital Signs: Most Recent Vital Signs Temp Pulse Resp BP Pulse Ox 36.0 C L 64 18 107/69 100 09/01/23 11:26 09/01/23 11:26 09/01/23 11:26 09/01/23 11:26 09/01/23 11:26 Most Recent Manually Entered Vital Signs: Adult Blood Pressure: 111/74 Heart Rate: 60 Respirations: 16 Oxygen Saturation (%): 99 Temperature (C): 35.9 C Pain Score (0-10 Scale): 9 (Patient reports some medial pain, RN aware, plan to medicate per orders) Pain Score Most Recent Pain Score: Most Recent Pain Score Pain Level [Right Ankle] 7 09/01/23 11:26 Pain Level 6 09/01/23 14:07 Assessment Mental Status: Arousable with meaningful communication Airway and Respiratory Function: Patent airway with normal (patient baseline) respiratory exam Cardiovascular Function: Hemodynamically Stable Hydration Status: Adequately Hydrated Nausea & Vomiting: No Nausea or Vomiting Pain: Pain is Moderate or Severe Postoperative Pain Management: Pain being addressed with medication Peripheral Nerve Block: Regional nerve block not resolved at time of post operative discharge
[2023-09-02 03:29] VITALS: BP 118/78; PULSE 67; RESP 19; TEMP 36; O2SAT 100
[2023-09-02] MEDS: Acetaminophen 500 MG TAB 1000 MG PO ×4 (04:11→20:26)
[2023-09-02] MEDS: Normal Saline 1,000 ML 80 ML IV (04:12)
[2023-09-02] MEDS: Ketorolac 15 MG/ML VIAL IVP ×4 (04:12→22:05)
[2023-09-02] MEDS: PIPERACILLIN/TAZO 3.375 GM in Normal Saline 50 ML IVPB ×4 (06:17→23:08)
[2023-09-02] MEDS: Methadone 10 MG TAB 15 MG PO (06:18)
[2023-09-02 07:06] LABS: Abs Immature Grans 0.02 10^3/uL (0.0-0.06); Absolute Basophil Count 0.02 10^3/uL (0.0-0.2); Absolute Eosinophil Count 0.04 10^3/uL (0.0-0.7); Absolute Lymphocyte Count 1.27 10^3/uL (1.2-3.4); Absolute Monocyte Count 0.51 10^3/uL (0.1-0.8); Absolute Neutrophil Count 5.59 10^3/uL (1.2-6.7); Basophils % 0.3; Eosinophils % 0.5; HCT 28.1 % (36.0-46.0); Immature Grans % 0.3; MCH 29.6 pg (27.0-33.0); MCV 92 fL (80-95); MPV 10.5 fL (8.0-11.0); Monocytes % 6.8; Neutrophils % 75.1; Platelet Count 231 10^3/uL (130-400); RBC 3.04 10^6/uL (3.93-5.22); RDW-SD 43.7 fL; WBC 7.45 10^3/uL (4.4-10.8)
[2023-09-02 07:24] VITALS: BP 122/83; PULSE 66; RESP 16; TEMP 36.7; O2SAT 99
[2023-09-02 07:36] LABS: Anion Gap 9.4 mmol/L (3-11); BUN 7 mg/dL (7-18); C-Reactive Protein 9.99 mg/dL (0.0-0.3); CO2 25.6 mmol/L (21.0-32.0); CREATININE 0.8 mg/dL (0.55-1.02); Calcium 8.4 mg/dL (8.5-10.1); Chloride 107 mmol/L (98-107); Estimated GFR 96.66 (mL/min/1.73m2); Glucose 102 mg/dL (74-106); Potassium 3.8 mmol/L (3.5-5.1); Sodium 142 mmol/L (136-145)
[2023-09-02 07:58] LABS: Vancomycin, Random 7.5 ug/mL
[2023-09-02] MEDS: VANCOMYCIN/WATER (PEG) 750 MG/150 ML BAG 150 MG IV (08:05)
[2023-09-02] MEDS: Normal Saline Flush 10 ML SYR IVP ×7 (08:06→20:27)
[2023-09-02] MEDS: VANCOMYCIN/WATER (PEG) 1 GM/200 ML BAG IV ×2 (09:15→16:13)
--- NOTE | 2023-09-02 11:19 | PGE_ITS ---
Date of Service Date of service: 09/02/23 Time of Service: 11:19 Assessment and Plan Assessment and plan (1) Septic arthritis of right ankle: Assessment and plan: Postop day 1 of surgical washout. Continue routine postoperative care per orthopedics Continue Vanco and Zosyn pending cultures Initial blood cultures are negative after 24 hours continue to follow Pain control: Recreational use IV fentanyl so was started on methadone which seems to be effective Continue oral morphine:Monitor closely for respiratory distress Continue methadone 15 mg Q8H Dose adjustment after surgery if needed . (2) IVDU (intravenous drug user): Assessment and plan: As above (3) Ulcer of right lower extremity with fat layer exposed: Status: Acute Assessment and plan: Healing ulcer to right calf without evidence of surrounding cellulitis or unde rlying abscess (4) Anemia: Status: Chronic Assessment and plan: check iron studies, folate and B12 levels not active bleeding Qualifiers: Anemia type: unspecified type Qualified Code(s): D64.9 - Anemia, unspecified (5) On deep vein thrombosis (DVT) prophylaxis: Status: Acute Assessment and plan: As per surgery (6) Discharge planning issues: Status: Acute Assessment and plan: Patient has no PCP in the area, from [facility] Might require assistance to establish PCP for post-admission care; CM to f/u discussed with DR Donaldson Subjective Subjective Interval history since last seen: Still having right ankle pain but reports better controlled with current pain regimen. Today started having loose stools x 1 does have some lower abdominal cramping. No marianne blood noted. States she is eating and drinking well afebrile with max temp of 36.8 overnight. Denies any cough shortness of breath Exam Narrative Exam Narrative: Older appearing than stated age white female resting quietly on her bed in no acute distress skin is pink warm dry well-perfused with normal vital signs. Head is atraumatic oral mucosas moist neck full range of motion respirations are even and unlabored cardiovascular regular rate and rhythm well-perfused good peripheral pulse abdomen soft reports generalized tenderness in her lower abdomen no masses no rebounding no guarding positive bowel sounds her extremities are with no edema she has a Shilpa wrap and Bahman wrap to her right lower extremity there is no drainage noted there is no erythema proximally or distally to the dressing. Toes are warm good sensation good movement Objective Last Vital Signs Temp 36.7 C 09/02/23 07:24 Pulse 66 09/02/23 07:24 Resp 16 09/02/23 07:24 BP 122/83 09/02/23 07:24 Pulse Ox 99 09/02/23 07:24 Laboratory Results - last 24 hr 08/31/23 09/01/23 09/02/23 16:49 15:56 06:50 WBC 7.45 RBC 3.04 L Hgb 9.0 L Hct 28.1 L MCV 92 MCH 29.6 MCHC 32.0 RDW 13.0 Plt Count 231 MPV 10.5 Immature Gran % 0.3 Neutrophils % 75.1 Lymphocytes % 17.0 Monocytes % 6.8 Eosinophils % 0.5 Basophils % 0.3 Nucleated RBC % 0.0 Absolute Neutrophils 5.59 Absolute Lymphocytes 1.27 Absolute Monocytes 0.51 Absolute Eosinophils 0.04 Absolute Basophils 0.02 Sodium 142 Potassium 3.8 Chloride 107 Carbon Dioxide 25.6 Anion Gap 9.4 BUN 7 Creatinine 0.8 Est GFR (CKD-EPI 2020) 96.66 Glucose 102 Calcium 8.4 L C-Reactive Protein 9.99 H Fluid Crystals No Crystals seen Fluid Crystal Source Synovial Random Vancomycin Path Cons Comment 09/02/23 07:00 WBC RBC Hgb Hct MCV MCH MCHC RDW Plt Count MPV Immature Gran % Neutrophils % Lymphocytes % Monocytes % Eosinophils % Basophils % Nucleated RBC % Absolute Neutrophils Absolute Lymphocytes Absolute Monocytes Absolute Eosinophils Absolute Basophils Sodium Potassium Chloride Carbon Dioxide Anion Gap BUN Creatinine Est GFR (CKD-EPI 2020) Glucose Calcium C-Reactive Protein Fluid Crystals Fluid Crystal Source Random Vancomycin 7.5 Path Cons Comment Time Spent with Patient Time Spent with Patient: 25-34 minutes Time was spent: preparing to see the patient(eg.review tests), obtaining and/or reviewing separately otained hiistory, ordering medications,tests, procedures, referring, communicating with other health post anesthesia care unit nurse, indepentently interpreting results and counseling the patient
[2023-09-02] MEDS: Loperamide 2 MG CAP PO (11:34)
[2023-09-02 11:45] LABS: Lab Add On Test DONE
[2023-09-02 11:58] LABS: Iron 19 ug/dL (50-170); Total Iron Binding Capacity 192 ug/dL (250-450); Transferrin Sat 10 % (15-50)
[2023-09-02 12:25] LABS: Folate 7.1 ng/mL (8.6-20.0); Vitamin B12 442 pg/mL (193-986)
[2023-09-02] MEDS: Methadone 5 MG TAB 20 MG PO ×2 (13:55→21:49)
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
--- NOTE | 2023-09-02 15:55 | PGE_ITS ---
Date of Service Date of service: 09/02/23 Time of Service: 15:55 Assessment and Plan Assessment and plan (1) Septic arthritis of right ankle: Status: Acute Assessment and plan: Melissa seems to be doing well. Her cultures are taking more time than I would have thought to grow anything given the appearnace. HOwever, it is looking like it may be strep which should be easily treateable. We will continue with Vanc/Zosyn for now but likely narrow this down tomorrow. She should be able to discharge with oral antibiotics in the next few days but will discuss with Medicine. Appreciate hospitalist consult for assistance with current pain control and her transition to Methadone to stop her IVDU. Subjective Subjective Interval history since last seen: Melissa reports to be doing well. She has some pain in the ankle but it is controlled. No fever and no chills. No other joint or muscle pains. There was report of loose stools but that only occurred once. Initial cultures have gram positive cocci in the broth. Exam Narrative Exam Narrative: Laying in the bed. NAD. AAOx3. RLE dressing to the medial calf wound without surrounding errythema. Mild swel ling to the distal right leg and ankle/foot. +ADF/APF/EHL/FHL. Dressing c/d/i. Objective Last Vital Signs Temp 36.7 C 09/02/23 07:24 Pulse 66 09/02/23 07:24 Resp 16 09/02/23 07:24 BP 122/83 09/02/23 07:24 Pulse Ox 99 09/02/23 07:24 Laboratory Results - last 24 hr 09/01/23 09/02/23 09/02/23 15:56 06:50 06:55 WBC 7.45 RBC 3.04 L Hgb 9.0 L Hct 28.1 L MCV 92 MCH 29.6 MCHC 32.0 RDW 13.0 Plt Count 231 MPV 10.5 Immature Gran % 0.3 Neutrophils % 75.1 Lymphocytes % 17.0 Monocytes % 6.8 Eosinophils % 0.5 Basophils % 0.3 Nucleated RBC % 0.0 Absolute Neutrophils 5.59 Absolute Lymphocytes 1.27 Absolute Monocytes 0.51 Absolute Eosinophils 0.04 Absolute Basophils 0.02 Sodium 142 Potassium 3.8 Chloride 107 Carbon Dioxide 25.6 Anion Gap 9.4 BUN 7 Creatinine 0.8 Est GFR (CKD-EPI 2020) 96.66 Glucose 102 Calcium 8.4 L Iron 19 L TIBC 192 L Transferrin % Sat 10 L C-Reactive Protein 9.99 H Vitamin B12 442 Folate 7.1 L Fluid Crystals No Crystals seen Fluid Crystal Source Synovial Random Vancomycin Add-On Test Request 09/02/23 09/02/23 07:00 11:44 WBC RBC Hgb Hct MCV MCH MCHC RDW Plt Count MPV Immature Gran % Neutrophils % Lymphocytes % Monocytes % Eosinophils % Basophils % Nucleated RBC % Absolute Neutrophils Absolute Lymphocytes Absolute Monocytes Absolute Eosinophils Absolute Basophils Sodium Potassium Chloride Carbon Dioxide Anion Gap BUN Creatinine Est GFR (CKD-EPI 2020) Glucose Calcium Iron TIBC Transferrin % Sat C-Reactive Protein Vitamin B12 Folate Fluid Crystals Fluid Crystal Source Random Vancomycin 7.5 Add-On Test Request DONE Time Spent with Patient Time Spent with Patient: 25-34 minutes Time was spent: preparing to see the patient(eg.review tests), indepentently interpreting results and counseling the patient
[2023-09-02 16:05] VITALS: BP 122/81; PULSE 65; RESP 24; TEMP 37; O2SAT 100
[2023-09-02 16:45] LABS: Vancomycin, Trough 18.3 ug/mL (10.0-20.0)
[2023-09-02] MEDS: Ondansetron 4 MG/2 ML VIAL IVP (18:20)
[2023-09-02 20:01] VITALS: BP 143/77; PULSE 77; RESP 18; TEMP 36.8; O2SAT 99
[2023-09-02] MEDS: Ferrous Sulfate 325 MG TAB PO (20:26)
[2023-09-02 23:14] VITALS: BP 114/64; PULSE 54; RESP 17; TEMP 37.1; O2SAT 98
[2023-09-02 23:21] LABS: Vancomycin, Trough 20.6 ug/mL (10.0-20.0)
[2023-09-03] MEDS: VANCOMYCIN/WATER (PEG) 750 MG/150 ML BAG 150 MG IV (00:39)
[2023-09-03 03:11] VITALS: BP 105/66; PULSE 71; RESP 17; TEMP 36.6; O2SAT 100
[2023-09-03] MEDS: Acetaminophen 500 MG TAB 1000 MG PO (03:12)
[2023-09-03] MEDS: Ketorolac 15 MG/ML VIAL IVP (03:13)
[2023-09-03] MEDS: Normal Saline Flush 10 ML SYR IVP ×2 (03:14→07:55)
[2023-09-03] MEDS: Methadone 5 MG TAB 20 MG PO (05:13)
[2023-09-03] MEDS: PIPERACILLIN/TAZO 3.375 GM in Normal Saline 50 ML IVPB (05:13)
[2023-09-03 07:26] LABS: Abs Immature Grans 0.05 10^3/uL (0.0-0.06); Absolute Basophil Count 0.03 10^3/uL (0.0-0.2); Absolute Eosinophil Count 0.03 10^3/uL (0.0-0.7); Absolute Lymphocyte Count 1.64 10^3/uL (1.2-3.4); Absolute Monocyte Count 0.47 10^3/uL (0.1-0.8); Basophils % 0.3; Eosinophils % 0.3; HCT 23.7 % (36.0-46.0); HGB 7.7 g/dL (11.2-15.7); Immature Grans % 0.4; Lymphocytes % 14.2; MCH 30.3 pg (27.0-33.0); MCHC 32.5 % (32.0-36.0); MCV 93 fL (80-95); MPV 10.3 fL (8.0-11.0); Monocytes % 4.1; Neutrophils % 80.7; Platelet Count 315 10^3/uL (130-400); RBC 2.54 10^6/uL (3.93-5.22); RDW-SD 44.4 fL; WBC 11.56 10^3/uL (4.4-10.8)
[2023-09-03 07:27] LABS: Absolute Neutrophil Count 9.33 10^3/uL (1.2-6.7)
[2023-09-03 07:40] LABS: Anion Gap 8.3 mmol/L (3-11); BUN 6 mg/dL (7-18); CO2 27.7 mmol/L (21.0-32.0); CREATININE 0.9 mg/dL (0.55-1.02); Calcium 9.2 mg/dL (8.5-10.1); Chloride 105 mmol/L (98-107); Estimated GFR 83.92 (mL/min/1.73m2); Glucose 91 mg/dL (74-106); Potassium 3.5 mmol/L (3.5-5.1); Sodium 141 mmol/L (136-145)
[2023-09-03 07:43] VITALS: BP 120/57; PULSE 75; RESP 17; TEMP 36.5; O2SAT 100
[2023-09-03 07:46] LABS: Vancomycin, Random 21.8 ug/mL
[2023-09-03] MEDS: Enoxaparin 40 MG/0.4 ML SYR SC (07:54)
[2023-09-03] MEDS: Ferrous Sulfate 325 MG TAB PO (07:54)
--- NOTE | 2023-09-03 08:32 | PGE_ITS ---
Date of Service Date of service: 09/03/23 Time of Service: 07:45 Assessment and Plan Assessment and plan (1) Septic arthritis of right ankle: Status: Acute Assessment and plan: Melissa is a 38-year-old female who scented with what appear to be a septic arthritis about the right ankle. She is an active IV drug user and injects frequently on this leg and adjacent to the ankle. She had an elevated CRP but no surrounding erythema or warmth. The situation seem to present as a septic arthritis but what is interesting is that there is been very slow growth of any of the cultures from the emergency department and from the operating room despite the appearance of the fluid appearing purulent in nature or at least significantly thickened. Interestingly, she also had further decline of hemoglobin without a dilutional factor. Crystal analysis was negative. Lyme testing is still pending. However, this does not fully explain what is going on. I empathized with her desire to get out of the hospital. However, we are in a predicament at this point as we really do not know exactly what is going on nor what the bacteria is that is causing the symptoms if it is infectious which would seem to be the most likely. At this point, I think the debridement was excessive for the ankle. She may slowly increase range of motion and weightbearing. She should utilize crutches to assist with her weightbearing but slowly place more more weight on the leg as tolerated. I would default to the medicine team for further evaluation of her ongoing symptoms and potential discharge disposition. It is possible this could be treated with oral antibiotics but without an organism it is difficult to know the correct antibiotic. However, the initial rough growth would suggest Streptococcus. I discussed the case in detail with Dr. Donaldson. Dr. Donaldson will continue to evaluate her and make further recommendations. As for the ankle, she may slowly increase activities. I can see her back in 2 weeks in the office. Subjective Subjective Interval history since last seen: Melissa reports that she is doing well. She has had an episode of loose stool but no recurrence. No fevers no chills. She has had pain of the ankle but has been managed with her current regimen. She has not placed any weight on it yet. She expresses some frustration still being hospital wants to get out of here soon as possible. She notes that she does not want to be in the hospital any longer and has family she will stay with at her home in [place]. Gram-positive cocci in chains is growing out of the broth from the first aspiration of the emergency department. Otherwise, no speciation yet from the sample. Hemoglobin continues to drop on recurrent labs. Exam Narrative Exam Narrative: Resting in the bed. No acute distress. Alert and orient x 3. Evaluation of the right lower extremity shows clean dry and intact dressings. The dressings were removed and the [place] was removed from the ankle. There is no purulence. No surrounding erythema. Objective Last Vital Signs Temp 36.5 C 09/03/23 07:43 Pulse 75 09/03/23 07:43 Resp 17 09/03/23 07:43 BP 120/57 L 09/03/23 07:43 Pulse Ox 100 09/03/23 07:43 Laboratory Results - last 24 hr 09/02/23 09/02/23 09/02/23 06:55 11:44 16:20 WBC RBC Hgb Hct MCV MCH MCHC RDW Plt Count MPV Immature Gran % Neutrophils % Lymphocytes % Monocytes % Eosinophils % Basophils % Nucleated RBC % Absolute Neutrophils Absolute Lymphocytes Absolute Monocytes Absolute Eosinophils Absolute Basophils Sodium Potassium Chloride Carbon Dioxide Anion Gap BUN Creatinine Est GFR (CKD-EPI 2020) Glucose Calcium Iron 19 L TIBC 192 L Transferrin % Sat 10 L Vitamin B12 442 Folate 7.1 L Vancomycin Trough 18.3 Random Vancomycin Add-On Test Request DONE 09/02/23 09/03/23 22:55 07:15 WBC 11.56 H RBC 2.54 L Hgb 7.7 L Hct 23.7 L MCV 93 MCH 30.3 MCHC 32.5 RDW 13.0 Plt Count 315 MPV 10.3 Immature Gran % 0.4 Neutrophils % 80.7 Lymphocytes % 14.2 Monocytes % 4.1 Eosinophils % 0.3 Basophils % 0.3 Nucleated RBC % 0.0 Absolute Neutrophils 9.33 H Absolute Lymphocytes 1.64 Absolute Monocytes 0.47 Absolute Eosinophils 0.03 Absolute Basophils 0.03 Sodium 141 Potassium 3.5 Chloride 105 Carbon Dioxide 27.7 Anion Gap 8.3 BUN 6 L Creatinine 0.9 Est GFR (CKD-EPI 2020) 83.92 Glucose 91 Calcium 9.2 Iron TIBC Transferrin % Sat Vitamin B12 Folate Vancomycin Trough 20.6 H* Random Vancomycin 21.8 Add-On Test Request Time Spent with Patient Time Spent with Patient: 35-49 minutes Time was spent: obtaining and/or reviewing separately otained hiistory, referring, communicating with other health career development associate, indepentently interpreting results, counseling the patient and care coordination
[2023-09-03 09:26] LABS: C Diff PCR Negative (Negative)
[2023-09-03 10:04] LABS: Lyme Ab w Rflx to Lyme Confirm Negative (Negative)
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
--- NOTE | 2023-09-03 17:55 | DSE_ITS ---
Date of service: 09/03/23 Time of Service: 10:00 DS: Diagnosis Discharge Diagnosis (1) Ulcer of right lower extremity with fat layer exposed: Status: Acute (2) Septic arthritis of right ankle: Status: Acute (3) IVDU (intravenous drug user): Discharge Plan Disposition Patient Disposition: Against Medical Advice Condition: Improving Discharge Details Reason For Visit: R ankle septic arthritis Admit Date/Time: 08/31/23 19:10 Admit Provider: Paul Pacheco Attending Provider: Paul Pacheco Primary Care Provider: None,None Hospital Course Hospital Course: This is a 38-year-old female patient who was admitted under orthopedic services for septic arthritis of the right ankle. She underwent surgical washout and has had improvement in pain and symptoms. Hemodynamically she has remained stable she has been afebrile she is eating and drinking she had been receiving IV antibiotics hospitalist services was following along in consultation secondary to pain management in setting of current IV drug abuse. She had been started on methadone which seem to be controlling her pain. This morning she requested to be discharged. Discharge is not recommended at this point and she opted to leave AGAINST MEDICAL ADVICE. Risks of leaving and benefits of staying for appropriate treatment with IV antibiotics were reviewed with DR Donaldson and patient still opted to leave AGAINST MEDICAL ADVICE. She was demonstrating capacity with no evidence of impairment. She was provided a prescription for levofloxacin and was advised to follow-up closely outpatient or return sooner for new or worsening symptoms. Home Meds and New Rx's Prescriptions: New levofloxacin 750 mg tablet 750 mg PO DAILY Qty: 10 0RF No Action buprenorphine HCl 8 mg tablet, sublingual 8 mg SUBLINGUAL BID Patient Comments: place 1 tablet by sublingual route 2 times every day allow to dissolve slowly in mouth without chewing or swallowing Discharge Instructions Activity:: Activity as Tolerated Equipment/Supplies:: No Equipment Needed Diet:: As Tolerated Discharge Orders Discharge Orders: Discharge Order (Routine); Ordered 09/03/23 Ordered By: Venu Donaldson Discharge Data Discharge Date/Time-TO BE ENTERED AT DEPARTURE: 09/03/23 09:42 DS: Summary Time Spent with Patient providing and/or coordinating discharge services: Less than 30 minutes Status at Discharge Functional status at discharge: independent ambulation Overall status at discharge: patient is not back to baseline Mental Status: mental status grossly normal Speech and Movement: speech and movement normal Mood: congruent mood Affect: normal affect Quality:SDOH Health Related Social Needs: Health related social needs risk of homeless, food ins ecurity Exam Narrative Exam Narrative: Patient left prior to me examining her. Psych Mental Status: mental status grossly normal Speech and Movement: speech and movement normal Mood: congruent mood Affect: normal affect DS: Data Vitals/I&O Vitals and I&O: Vital Signs Temperature 36.5 C 09/03/23 07:43 Temperature Source Tympanic 09/03/23 07:43 Pulse 75 09/03/23 07:43 Pulse Rhythm Regular 09/03/23 01:26 Respiratory Rate 17 09/03/23 07:43 Respiratory Effort Normal, Non-Labored 09/03/23 01:26 Respiratory Depth Normal 09/03/23 01:26 Respiratory Pattern Normal 09/03/23 01:26 Blood Pressure 120/57 L 09/03/23 07:43 Blood Pressure Position Sitting 08/31/23 12:12 Pulse Oximetry 100 09/03/23 07:43 Oxygen Delivery Method Room Air 09/03/23 07:43 Oxygen Flow Rate 0 09/03/23 07:43 Pain Level 5 09/03/23 07:43 Comment sleeping 09/01/23 18:24 Intake & Output 09/02/23 09/03/23 09/03/23 23:59 11:59 23:59 Intake Total 1241.667 / 2541.667 250 / 250 Output Total 1100 / 1400 250 / 250 Balance 141.667 / 1141.667 0 / 0 Intake: IV 1011.667 / 2061.667 250 / 250 Oral 230 / 480 Output: Urine 1100 / 1400 250 / 250 Other: Urine Color Yellow Yellow Urine Appearance Clear Clear Urine Odor Normal Comment Void x1 in the bedside commode. RN unable to determine urine amount; no measuring hat noted in toilet. Pt. voided a large amount of clear, yellow, urine in the bedside commode. Stool Size Small Stool Characteristics Formed Brown Voiding Methods Bedside Commode Bedside Commode Data Completed and Pending Labs on day of discharge: Labs from last 24 hours 09/03/23 09/03/23 09/02/23 08:31 07:15 22:55 WBC 11.56 H RBC 2.54 L Hgb 7.7 L Hct 23.7 L MCV 93 MCH 30.3 MCHC 32.5 RDW 13.0 Plt Count 315 MPV 10.3 Immature Gran % 0.4 Neutrophils % 80.7 Lymphocytes % 14.2 Monocytes % 4.1 Eosinophils % 0.3 Basophils % 0.3 Nucleated RBC % 0.0 Absolute Neutrophils 9.33 H Absolute Lymphocytes 1.64 Absolute Monocytes 0.47 Absolute Eosinophils 0.03 Absolute Basophils 0.03 Sodium 141 Potassium 3.5 Chloride 105 Carbon Dioxide 27.7 Anion Gap 8.3 BUN 6 L Creatinine 0.9 Est GFR (CKD-EPI 2020) 83.92 Glucose 91 Calcium 9.2 Methylmalonic Acid Pending Homocysteine Pending Stl C.difficile Tox PCR Negative Vancomycin Trough 20.6 H* Random Vancomycin 21.8 Lyme Disease Antibody 09/02/23 06:50 WBC RBC Hgb Hct MCV MCH MCHC RDW Plt Count MPV Immature Gran % Neutrophils % Lymphocytes % Monocytes % Eosinophils % Basophils % Nucleated RBC % Absolute Neutrophils Absolute Lymphocytes Absolute Monocytes Absolute Eosinophils Absolute Basophils Sodium Potassium Chloride Carbon Dioxide Anion Gap BUN Creatinine Est GFR (CKD-EPI 2020) Glucose Calcium Methylmalonic Acid Homocysteine Stl C.difficile Tox PCR Vancomycin Trough Random Vancomycin Lyme Disease Antibody Negative Preliminary micro results at discharge 08/31/23 16:49 Body Fluid Culture - Preliminary Synovial - R Ankle Strep Pyogenes (Group A) 09/01/23 15:56 Body Fluid Culture - Preliminary Synovial - Right Joint 08/31/23 17:45 Blood Culture - Preliminary Blood NO GROWTH 48 HOURS 08/31/23 17:34 Blood Culture - Preliminary Blood NO GROWTH 48 HOURS PFSH All Active Problems (Updated 09/01/23 @ 11:39 by Henny Quiroz APRN) Septic arthritis of right ankle (Acute) On deep vein thrombosis (DVT) prophylaxis (Acute) Discharge planning issues (Acute) Anemia (Chronic) Ulcer of right lower extremity with fat layer exposed (Acute) Right ankle pain (Acute) Medical History (Updated 09/01/23 @ 11:39 by Henny Quiroz APRN) IVDU (intravenous drug user) Surgical History (Updated 09/03/23 @ 05:43 by Paul Pacheco MD) Cervical vertebral fusion Social History Smoking/Tobacco Use Status: Never Smoking risk assessment performed?: Yes Alcohol Intake: current Alcohol Intake frequency: other Substance use type: opiates (Fentanyl) Details: Fentanyl Housing: house Do you feel safe at home: Yes Do you feel safe in your relationship?: Yes Time Spent with Patient Time Spent with Patient: <45 minutes Time was spent: ordering medications,tests, procedures
[2023-09-04 18:57] LABS: Anaplasma phagocytophilum Negative (Negative); B. miyamotoi PCR Negative (Negative); Babesia divergens/MO-1 Negative (Negative); Babesia duncani Negative (Negative); Babesia microti Negative (Negative); Ehrlichia chaffeensis Negative (Negative); Ehrlichia ewingii/canis Negative (Negative); Ehrlichia muris eauclairensis Negative (Negative)
[2023-09-08 09:34] LABS: Methylmalonic Acid 0.26 nmol/mL (<=0.40)
== END 2023-09-03 09:42 | disposition left against medical advice (07) | DRG 493 ==
LOC: ER 19:57 → MS 19:59
PROVIDERS: Emergency Medicine; Nurse Practitioner Acute Care; Physician Assistant; Admitting Provider Student in an Organized Health Care Education/Training Program; Emergency Provider Physician Assistant; Visit Provider Student in an Organized Health Care Education/Training Program
PROC: 0S9F0ZZ Drainage of Right Ankle Joint, Open Approach (ICD-10-PCS; CPT 27610; principal; 2023-09-01 16:45)
DX: M00.871 Arthritis due to other bacteria, right ankle and foot (principal); F11.20 Opioid dependence, uncomplicated; L97.912 Non-pressure chronic ulcer of unspecified part of right lower leg with fat layer exposed; D64.9 Anemia, unspecified; F19.90 Other psychoactive substance use, unspecified, uncomplicated; Z98.1 Arthrodesis status
CPT/HCPCS: 20605; 27610; 00123; 36415; 76942; 80048; 80053; 80186; 81025; 82306; 83090; 85652; 87040; 87077; 87493; 87635; 87798; 96365; 96375; 99285; 99306; J1650; 73610; 73630; 73723; 80202; 82607; 82746; 83540; 83550; 83605; 85025; 86140; 86618; 87070; 87205; 89051; 89060; 99223; 99233; 99238; C9290; J0665; J1885; J2001; J2250; J2405; J2543; J2704; J3010; J3370; J3372

== ENCOUNTER 2023-09-10 11:02 | Emergency (ER) | payer MEDICAID, SELFPAY ==
[2023-09-10 11:13] VITALS: BP 131/82; PULSE 129; RESP 18; TEMP 36.5; O2SAT 99
--- NOTE | 2023-09-10 11:29 | W.ED.GENAD ---
HPI General Date/Time Provider Initiated Documentation: 09/10/23 11:17. HPI Narrative: 38 year-old female presents to ED today by POV/ambulating with crutches with a chief complaint of seen on 08/31 in this ED for probable septic arthritis of R ankle secondary to IVDU, still active IVDU- states she fell on the ice on her foot and feels it is infected again with some purulent stains on her bandage. Quality described as very painful but able to actively range her ankle, swelling to foot, mild redness, no radiation to unilateral leg swelling, calf swelling/skin changes save for her known IVDU site lesion at mid-calf medially without acute worsening, and no fever/red streaking up the leg. Severity is described as 8/10. Palliating factors include taking levofloxacin as directed. Provoking factors include nothing specific. Patient not anticoagulated. Related Data Home Medications Medication Instructions Recorded Confirmed levofloxacin 750 mg tablet 750 mg PO DAILY #10 tabs 09/03/23 09/10/23 cephalexin 500 mg tablet 500 mg PO QID 10 days #40 tabs 09/10/23 methadone 10 mg/mL oral concentrate 70 mg PO DAILY 09/10/23 09/10/23 sulfamethoxazole 800 1 tab PO BID 10 days #20 tabs 09/10/23 mg-trimethoprim 160 mg tablet Previous Rx's Medication Instructions Recorded levofloxacin 750 mg tablet 750 mg PO DAILY #10 tabs 09/03/23 cephalexin 500 mg tablet 500 mg PO QID 10 days #40 tabs 09/10/23 sulfamethoxazole 800 1 tab PO BID 10 days #20 tabs 09/10/23 mg-trimethoprim 160 mg tablet Allergies Allergy/AdvReac Type Severity Reaction Status Date / Time No Known Allergies Allergy Verified 09/10/23 11:19 General Stated Complaint: Cellulitis ALDEN: 3 Review of Systems All systems reviewed & are unremarkable except as noted in HPI and below Exam Narrative Exam Narrative: GENERAL APPEARANCE: Well-nourished, non-toxic, awake and alert, atraumatic, no acute distress. SKIN: Warm, pink, dry, intact, without rashes/lesions/ulcerations. HEAD: Normocephalic, atraumatic, normal hair distribution for gender/age. EYES: Pupils PERRLA, EOMs intact without nystagmus, normal conjunctiva, no exudates on lids/lashes. ENT: Nares patent, no circumoral cyanosis, no facial swelling NECK: Supple, trachea midline, painless cervical ROM. LUNGS/CHEST: Non-labored respirations, normal A/P diameter, symmetrical expansion, no chest wall deformity HEART (CV/PV): Regular rate, R dorsalis pedis not palpable due to swelling of foot, brisk capillary refill, no peripheral edema, no JVD. ABDOMEN: Soft, non-distended, no guarding. MSK: Normal ROM, no swelling/deformity to bilateral UEs or LEs, moving all extremities without weakness, no cyanosis, spine midline without tenderness, normal curvature. R Foot: Diffuse swelling to the right foot with brisk capillary refill and sensation intact in all toes, dorsalis pedis pulse nonpalpable, mild purulent stains on her innermost dressing, no unilateral leg swelling, existing lesion at the mid medial calf from IVDU injection without acute worsening since prior visit, no lymphadenitis, able to actively range the foot NEURO: Mental Status AAOx4 - alert to person, place, time, events No facial droop, no forehead involvement. Motor: No focal weakness - strength 5/5 in bilateral UEs and LEs, proximal and distal, symmetric. Sensory: sensation intact to light touch globally. Gait NT. PSYCH: euthymic, cooperative, pleasant, appropriate speech Course Vital Signs Vital signs: Vital Signs Temperature 36.5 C 09/10/23 11:13 Pulse 129 H 09/10/23 11:13 Respiratory Rate 18 09/10/23 11:13 Blood Pressure 131/82 09/10/23 11:13 Pulse Oximetry 99 09/10/23 11:13 Temperature 36.5 C 09/10/23 11:13 Temperature Source Temporal Artery Scan 09/10/23 11:13 Pulse 129 H 09/10/23 11:13 Respiratory Rate 18 09/10/23 11:13 Respiratory Effort Normal 09/10/23 11:15 Blood Pressure 131/82 09/10/23 11:13 Blood Pressure Position Sitting 09/10/23 11:13 Pulse Oximetry 99 09/10/23 11:13 Oxygen Delivery Method Room Air 09/10/23 11:13 Oxygen Flow Rate 0 09/10/23 11:13 Pain Level 8 09/10/23 11:13 Medical Decision Making This dictation utilizes [id number] dictation software and may contain unedited grammatical errors. 38 y/o F presents to ED today with a chief complaint of fall last night on R foot/ankle after being admitted for surgery for septic arthritis last week- states she feels the infection is back with increased pain. Patient is NV intact in the R foot. Patients' medical history: IVDU. Family and social history: lives at home with her children. Pertinent exam findings / vital signs include R Foot: Diffuse swelling to the right foot with brisk capillary refill and sensation intact in all toes, dorsalis pedis pulse nonpalpable, mild purulent stains on her innermost dressing, no unilateral leg swelling, existing lesion at the mid medial calf from IVDU injection without acute worsening since prior visit, no lymphadenitis, able to actively range the foot. Differential / pathologies of concern include septic arthritis, fracture, cellulitis, postoperative wound infection. Diagnostic studies of: -XR R Ankle. CBC, CMP, Lactate, CRP/ESR, Blood Cx's. -CRP stable from prior visit -CBC benign -Lactate negative -XR negative for new trauma Interventions of: -Consulted with orthopaedic service, they are reassured by labs and inspected her surgical wound, her joint culture did not grow bacteria- they recommend adding Keflex and Bactrim for cellulitis with MRSA coverage and will follow with patient Thursday morning in office- loaded with IV ceftriaxone and vancomycin. ED Course/Assessment/Plan: 38-year-old female who presents with postoperative complication from septic arthritis admission last week. She is an active IVDU user, states she fell on the ice last night, x-rays unremarkable for any trauma, her labs are reassuring and her joint aspiration from her procedure did not grow any bacteria. She was seen by orthopedics and we engaged in shared decision-making between multidisciplinary services and the patient to add antibiotics to cover for postoperative cellulitis, they will follow in the office on Thursday, counseled on strict return criteria for any lymphadenitis, fever, worsening pain despite treatment. Findings not consistent with septic arthritis, sepsis, new trauma/fracture/NV compromise. Disposition of Postoperative Wound Cellulitis. Patient verbalized understanding of the plan and return to ED criteria and engaged in shared decision making. Medical Records Medical records reviewed: Yes I reviewed the patient's medical records. Imaging Data Radiologic Study: Attestation: I personally reviewed and interpreted this imaging study as follows: Imaging: X-Ray Radiologist's impression: EXAM: XR ANKLE RT COMPLETE CLINICAL HISTORY: hx septic arthritis, fall on ice last night. TECHNIQUE: 2D digital imaging was performed. Three views. COMPARISON: MR LOWER JOINT RT WO/W from 08/31/2023 FINDINGS: BONES: No acute fracture is present. No bony destructive lesion is seen. JOINTS: The ankle mortise is normally aligned. Joint space is maintained. SOFT TISSUE: Lower leg and ankle edema. IMPRESSION: Unremarkable radiographs of the right ankle. Lab Data Lab results reviewed: Yes I reviewed the patient's lab results. Labs: 09/10/23 12:29 Blood Blood Culture - Preliminary NO GROWTH 24 HOURS 09/10/23 11:52 Blood Blood Culture - Preliminary NO GROWTH 24 HOURS Laboratory Tests Range/Units 09/10/23 11:52 WBC (4.4-10.8) 10^3/uL 6.61 RBC (3.93-5.22) 10^6/uL 3.18 L Hgb (11.2-15.7) g/dL 9.2 L Hct (36.0-46.0) % 29.0 L MCV (80-95) fL 91 MCH (27.0-33.0) pg 28.9 MCHC (32.0-36.0) % 31.7 L RDW (11.7-14.6) % 13.2 Plt Count (130-400) 10^3/uL 334 MPV (8.0-11.0) fL 9.2 Immature Gran % 0.8 Neutrophils % 63.6 Lymphocytes % 21.8 Monocytes % 10.6 Eosinophils % 2.6 Basophils % 0.6 Nucleated RBC % (0.0-0.3) % 0.0 Absolute Neutrophils (1.2-6.7) 10^3/uL 4.21 Absolute Lymphocytes (1.2-3.4) 10^3/uL 1.44 Absolute Monocytes (0.1-0.8) 10^3/uL 0.70 Absolute Eosinophils (0.0-0.7) 10^3/uL 0.17 Absolute Basophils (0.0-0.2) 10^3/uL 0.04 ESR (0-20) mm/hr 54 H VBG Lactate (0.6-1.4) mmol/L 0.7 Sodium (136-145) mmol/L 138 Potassium (3.5-5.1) mmol/L 4.0 Chloride (98-107) mmol/L 100 Carbon Dioxide (21.0-32.0) mmol/L 30.4 Anion Gap (3-11) mmol/L 7.6 BUN (7-18) mg/dL 12 Creatinine (0.55-1.02) mg/dL 0.8 Est GFR (CKD-EPI 2020) (mL/min/1.73m2) 96.66 Glucose (74-106) mg/dL 106 Calcium (8.5-10.1) mg/dL 8.6 Total Bilirubin (0.2-1.0) mg/dL 0.1 L AST (15-37) U/L 14 L ALT (14-59) U/L 16 Alkaline Phosphatase (46-116) U/L 89 C-Reactive Protein (<or=0.5) mg/dL 8.96 H Total Protein (6.4-8.2) g/dL 7.5 Albumin (3.4-5.0) g/dL 2.3 L Procalcitonin ng/mL < 0.1 Quality:SDOH Health Related Social Needs: Health related social needs risk of homeless, food insecurity PFSH All Active Problems (Updated 09/10/23 @ 14:21 by MELINDA Andrade) Postoperative wound cellulitis (Acute) Septic arthritis of right ankle (Acute) Anemia (Chronic) Ulcer of right lower extremity with fat layer exposed (Acute) Right ankle pain (Acute) Medical History (Updated 09/10/23 @ 14:21 by MELINDA Andrade) IVDU (intravenous drug user) Surgical History (Updated 09/04/23 @ 00:02 by RIKI MURPHY) Cervical vertebral fusion Social History Smoking/Tobacco Use Status: Never Smoking risk assessment performed?: Yes Alcohol Intake: current Alcohol Intake frequency: other Drug use: Daily Substance use type: opiates Details: Fentanyl- last used yesterday afternoon Housing: house Do you feel safe at home: Yes Do you feel safe in your relationship?: Yes Discharge Plan Disposition Patient Disposition: Home Condition: Stable Discharge Details Clinical Impression: Postoperative wound cellulitis Primary Care Provider: Unknown,Unknown ED Provider: Michel Miller Home Meds and New Rx's Prescriptions: New cephalexin 500 mg tablet 500 mg PO QID 10 Days Qty: 40 0RF sulfamethoxazole-trimethoprim 800-160 mg tablet 1 tab PO BID 10 Days Qty: 20 0RF Continued levofloxacin 750 mg tablet 750 mg PO DAILY Qty: 10 0RF methadone 10 mg/mL concentrate 70 mg PO DAILY Discharge Instructions Instructions: Cephalexin (By mouth), Sulfamethoxazole/Trimethoprim (By mouth), Cellulitis (ED) Additional Instructions: You were seen in the emergency department for your infection and fall on your recent surgical ankle. The joint fluid did not grow anything on culture and I think it is reasonable to follow-up with Dr. Pacheco in the office on Thursday. You were seen by orthopedics and they agreed with this plan. We are adding 2 antibiotics to your levofloxacin, please continue taking all as directed. Take Tylenol and ibuprofen for pain as needed, return urgently for developing fever, large increase in swelling in pain and redness. Referrals: [facility] [Provider Group] Discharge Data Discharge Date/Time-TO BE ENTERED AT DEPARTURE: 09/10/23 16:26
--- NOTE | 2023-09-10 11:45 | DI.RAD_ITS ---
Exam(s) XR ANKLE RT COMPLETE EXAM: XR ANKLE RT COMPLETE CLINICAL HISTORY: hx septic arthritis, fall on ice last night. TECHNIQUE: 2D digital imaging was performed. Three views. COMPARISON: MR MR LOWER JOINT RT WO/W from 08/31/2023 FINDINGS: BONES: No acute fracture is present. No bony destructive lesion is seen. JOINTS: The ankle mortise is normally aligned. Joint space is maintained. SOFT TISSUE: Lower leg and ankle edema. IMPRESSION: Unremarkable radiographs of the right ankle. DATA REPOSITORY: RADIATION DOSE DELIVERED:
[2023-09-10 12:11] LABS: Abs Immature Grans 0.05 10^3/uL (0.0-0.06); Absolute Basophil Count 0.04 10^3/uL (0.0-0.2); Absolute Eosinophil Count 0.17 10^3/uL (0.0-0.7); Absolute Lymphocyte Count 1.44 10^3/uL (1.2-3.4); Absolute Neutrophil Count 4.21 10^3/uL (1.2-6.7); Basophils % 0.6; Eosinophils % 2.6; HGB 9.2 g/dL (11.2-15.7); Immature Grans % 0.8; Lactate 0.7 mmol/L (0.6-1.4); Lymphocytes % 21.8; MCH 28.9 pg (27.0-33.0); MCHC 31.7 % (32.0-36.0); MCV 91 fL (80-95); MPV 9.2 fL (8.0-11.0); Monocytes % 10.6; Neutrophils % 63.6; Platelet Count 334 10^3/uL (130-400); RBC 3.18 10^6/uL (3.93-5.22); RDW 13.2 % (11.7-14.6); WBC 6.61 10^3/uL (4.4-10.8)
[2023-09-10 12:16] LABS: ESR 54 mm/hr (0-20)
[2023-09-10 12:42] LABS: Procalcitonin < 0.1 ng/mL
[2023-09-10 12:44] LABS: ALT 16 U/L (14-59); AST 14 U/L (15-37); Albumin 2.3 g/dL (3.4-5.0); Alkaline Phosphatase 89 U/L (46-116); Anion Gap 7.6 mmol/L (3-11); BUN 12 mg/dL (7-18); Bilirubin, Total 0.1 mg/dL (0.2-1.0); C-Reactive Protein 8.96 mg/dL (<or=0.5); CO2 30.4 mmol/L (21.0-32.0); CREATININE 0.8 mg/dL (0.55-1.02); Calcium 8.6 mg/dL (8.5-10.1); Chloride 100 mmol/L (98-107); Estimated GFR 96.66 (mL/min/1.73m2); Glucose 106 mg/dL (74-106); Sodium 138 mmol/L (136-145); Total Protein 7.5 g/dL (6.4-8.2)
[2023-09-10] MEDS: cefTRIAXone 2 GM/50 ML BAG IVPB (14:30)
[2023-09-10] MEDS: VANCOMYCIN 1,500 MG in Normal Saline 250 ML 166.6666 MG IVPB (15:15)
[2023-09-10 16:24] VITALS: BP 131/82; PULSE 129; RESP 18; TEMP 36.5; O2SAT 99
--- NOTE | 2023-09-10 16:44 | OCONE_ITS ---
Date of service: 09/10/23 Time of Service: 12:30 Assessment and Plan Assessment and plan (1) Postoperative wound cellulitis: Status: Acute Assessment and plan: 38-year-old female 9 days status post right ankle open irrigation and debridement for septic arthritis Patient does report that although she left AMA, she has been compliant with her Levaquin. She does state that overall she felt like her progress had plateaued but yesterday she did have a slip and fall on ice which cause increased pain and swelling. Physician machine operator assistant Gold Oliveros evaluated the patient while I was in surgery. He reviewed with me and communicated the plan to the emergency room. Consistent with superficial cellulitis about a single surgical site. Exam reassuring against recurrent septic joint. Patient is able to demonstrate gentle limited active ankle flexion extension as well as inversion and eversion. Right ankle x-ray ordered through the ER, personally reviewed, no acute bony abnormality, evidence of osteomyelitis, subcutaneous air. WBC normal at 6, CRP elevated at 9, but lower than during admission last week at 10. ESR mildly elevated at 54 compared to 45. Hospital apparently at full capacity. Recommend IV antibiotics while in ER. Continue ABX and broaden coverage for to include least MRSA and Strep. Arrange follow-up outpatient orthopedics in the next few days. Will discuss with Dr. Pacheco. [facility] All Active Problems (Updated 09/10/23 @ 14:21 by MELINDA Andrade) Postoperative wound cellulitis (Acute) Septic arthritis of right ankle (Acute) Anemia (Chronic) Ulcer of right lower extremity with fat layer exposed (Acute) Right ankle pain (Acute) Medical History (Updated 09/10/23 @ 14:21 by MELINDA Andrade) IVDU (intravenous drug user) Surgical History (Updated 09/04/23 @ 00:02 by RIKI MURPHY) Cervical vertebral fusion Social History Smoking/Tobacco Use Status: Never Smoking risk assessment performed?: Yes Alcohol Intake: current Alcohol Intake frequency: other Drug use: Daily Substance use type: opiates Details: Fentanyl- last used yesterday afternoon Housing: house Do you feel safe at home: Yes Do you feel safe in your relationship?: Yes Results Last Vital Signs Temp 36.5 C 09/10/23 16:24 Pulse 129 H 09/10/23 16:24 Resp 18 09/10/23 16:24 BP 131/82 09/10/23 16:24 Pulse Ox 99 09/10/23 16:24 Labs 09/10/23 11:52 09/10/23 11:52 Labs: Laboratory Results - last 24 hr 09/10/23 11:52 WBC 6.61 RBC 3.18 L Hgb 9.2 L Hct 29.0 L MCV 91 MCH 28.9 MCHC 31.7 L RDW 13.2 Plt Count 334 MPV 9.2 Immature Gran % 0.8 Neutrophils % 63.6 Lymphocytes % 21.8 Monocytes % 10.6 Eosinophils % 2.6 Basophils % 0.6 Nucleated RBC % 0.0 Absolute Neutrophils 4.21 Absolute Lymphocytes 1.44 Absolute Monocytes 0.70 Absolute Eosinophils 0.17 Absolute Basophils 0.04 ESR 54 H VBG Lactate 0.7 Sodium 138 Potassium 4.0 Chloride 100 Carbon Dioxide 30.4 Anion Gap 7.6 BUN 12 Creatinine 0.8 Est GFR (CKD-EPI 2020) 96.66 Glucose 106 Calcium 8.6 Total Bilirubin 0.1 L AST 14 L ALT 16 Alkaline Phosphatase 89 C-Reactive Protein 8.96 H Total Protein 7.5 Albumin 2.3 L Procalcitonin < 0.1
== END 2023-09-10 16:26 | disposition home or self-care (01) ==
PROVIDERS: Emergency Provider Physician Assistant
DX: T81.41XA Infection following a procedure, superficial incisional surgical site, initial encounter (principal); L03.115 Cellulitis of right lower limb
CPT/HCPCS: 80053; 84145; 85652; 87040; 96365; 99284; 73610; 83605; 85025; 86140; 99283; J0696; J3370